=== PATIENT | female | born 1945 | race Caucasian/White ===

== ENCOUNTER 2020-06-13 21:22 | Inpatient (IN) | payer MEDICARE, BC ==
[~2020-06-13] VITALS: Ht 160 cm; Wt 82.6 kg
[2020-06-13 21:10] VITALS: BP 141/62
[2020-06-13] MEDS ORDERED: HEPARIN for IV BOLUS 10,000 UNIT/10 ML VIAL. IV PRN ×2 (21:30)
[2020-06-13] MEDS ORDERED: ACETAMINOPHEN 325 MG TABLET. PO PRN (21:30)
--- NOTE | 2020-06-13 21:49 | NUR ---
Call to Collin Yañez son [phone] in regards to patients medication list. Pt doesn't know what she currently takes. Ria RN aware. awaiting call back.
[2020-06-13 22:21] LABS: BASO # 0.1 x10^3/uL (0.0-0.2); BASO % 0 % (0-3); EOS % 0 % (0-3); HEMOGLOBIN 7.9 g/dL (12.0-15.5); LYMPH # 3.3 x10^3/uL (1.0-4.8); LYMPH % 17 % (24-48); MEAN CORPUSCULAR HEMOGLOBIN 25 pg (25-35); MEAN CORPUSCULAR HGB CONC 31 g/dL (31-37); MEAN CORPUSCULAR VOLUME 80 fL (79-100); MONO # 1.6 x10^3/uL (0.0-1.1); MONO % 8 % (0-9); NEUT # 14.6 x10^3/uL (1.8-7.7); NEUT % 74 % (31-73); PLATELET COUNT 392 x10^3/uL (140-400); RED BLOOD COUNT 3.11 x10^6/uL (3.50-5.40); RED CELL DISTRIBUTION WIDTH 17.8 % (11.5-14.5); WHITE BLOOD COUNT 19.7 x10^3/uL (4.0-11.0)
[2020-06-13 22:25] LABS: UNFRACTIONATED HEPARIN TESTING 0.39 IU/mL (0.30-0.70)
[2020-06-13 22:30] VITALS: BP 140/62
[2020-06-13 22:30] LABS: ALBUMIN 2.8 g/dL (3.4-5.0); ALBUMIN/GLOBULIN RATIO 0.7 (1.0-1.7); CREATININE 0.9 mg/dL (0.6-1.0); GFR 61.5; POTASSIUM 3.7 mmol/L (3.5-5.1); TOTAL BILIRUBIN 0.4 mg/dL (0.2-1.0); TOTAL PROTEIN 6.8 g/dL (6.4-8.2)
[2020-06-13 22:45] LABS: % BANDS 1 % (0-9); % LYMPHS 14 % (24-48); % MONOS 3 % (0-10); % SEGS 82 % (35-66); ANISOCYTOSIS SLIGHT; HYPOCHROMIA MOD; PLT ESTIMATE ADEQUATE (ADEQUATE); POIKILOCYTOSIS SLIGHT; POLYCHROMASIA SLIGHT
[2020-06-13 22:46] LABS: HELMET CELLS OCC; OVALOCYTES OCC; TARGET CELLS OCC; TEAR DROP CELLS OCC
[2020-06-14] VITALS (10 sets, daily range): BP systolic 120–143; BP diastolic 47–62
[2020-06-14] MEDS: ANTI-COAG MONITOR BY PHARMACY. MC PRN ×2 (02:09→12:20)
--- NOTE | 2020-06-14 05:11 | NUR ---
Patient arrived at 2110 via ambulance from [facility]. Patient did not have medication list and no medications listed on [facility] paperwork other then heparin drip. Patient stated, "son had medication list." Son never returned this nurse or mother's phone call.
[2020-06-14 07:28] LABS: BASO # 0.1 x10^3/uL (0.0-0.2); BASO % 1 % (0-3); EOS # 0.2 x10^3/uL (0.0-0.7); EOS % 2 % (0-3); HEMATOCRIT 22.4 % (36.0-47.0); LYMPH # 4.1 x10^3/uL (1.0-4.8); LYMPH % 32 % (24-48); MEAN CORPUSCULAR HEMOGLOBIN 25 pg (25-35); MEAN CORPUSCULAR HGB CONC 31 g/dL (31-37); MEAN CORPUSCULAR VOLUME 81 fL (79-100); MONO % 8 % (0-9); NEUT # 7.6 x10^3/uL (1.8-7.7); NEUT % 58 % (31-73); PLATELET COUNT 354 x10^3/uL (140-400); RED BLOOD COUNT 2.78 x10^6/uL (3.50-5.40); RED CELL DISTRIBUTION WIDTH 17.9 % (11.5-14.5); WHITE BLOOD COUNT 13.1 x10^3/uL (4.0-11.0)
[2020-06-14 07:52] LABS: ALBUMIN 2.5 g/dL (3.4-5.0)
[2020-06-14 07:53] LABS: ALBUMIN/GLOBULIN RATIO 0.7 (1.0-1.7); CALCIUM 8.4 mg/dL (8.5-10.1); CREATININE 0.8 mg/dL (0.6-1.0); GFR 70.5; TOTAL BILIRUBIN 0.4 mg/dL (0.2-1.0)
[2020-06-14] MEDS ORDERED: TIOT18CA IH (07:59)
[2020-06-14] MEDS ORDERED: ATEN50TA PO (07:59)
[2020-06-14] MEDS ORDERED: OMEP20TA8 PO (07:59)
[2020-06-14] MEDS ORDERED: ATOR40TA59 PO (07:59)
[2020-06-14] MEDS ORDERED: LISI-130 PO (07:59)
--- NOTE | 2020-06-14 08:58 | HP ---
ADMIT DATE: 06/14/2020 HISTORY OF PRESENT ILLNESS: The patient is a 74-year-old female patient who was admitted to [facility] to the Emergency Room on 06/12/2020 with a complaint of nonproductive cough for the last 2 weeks, worsening shortness of breath, now exertional shortness of breath for the past 5-6 days. The patient has no history of coronary artery disease, has never had any history of DVT or PE. No recent surgeries or hospitalizations in the last 90 days. She has not been tested for COVID this year. Lives with her family members. The patient that any of them had COVID. She was extensively investigated. She had an EKG, which showed that she was in sinus rhythm with heart rate of 88 beats per minute with no axis deviation, corrected QT interval was 441 milliseconds. T-wave inversion in V2. No ST segment elevation or depression. Her chest x-ray showed normal lung volumes, no pulmonary masses or consolidation and the tracheobronchial tree and hilar structures are normal, no pleural effusion or pneumothorax. The cardiomediastinal silhouette is normal. She does have atherosclerosis of the thoracic aorta. She does have also moderate sized hiatal hernia. Her lab work showed that the patient has microcytic hypochromic anemia. Her white cell count was 14,700, hemoglobin was 7, hematocrit 22, MCV 79 and platelet count of 399,000 with normal manual differential. Her prothrombin time, INR and aPTT were normal. D-dimer was high at 6.16. Her chemistry was unremarkable. Her influenza A and B were negative and group A streptococcus rapid test was negative. Given the elevated D-dimer, she underwent CT angio of the chest and was found to have moderate burden of bilateral pulmonary thromboembolic disease involving segmental and subsegmental branches of all 5 lobes. No right heart strain. Lungs and airways, left upper lobe showed areas of bubbly lucencies with linear opacities and architectural distortion, symmetric right apical opacities. No abnormality of the central airways. She has small right-sided pleural effusion. The visualized thyroid is normal in size and attenuation. No axillary or supraclavicular lymphadenopathy. No mediastinal, hilar or retrosternal lymphadenopathy. Normal cardiac size, no pericardial effusion. Coronary artery atherosclerotic disease. Limited images through the upper abdomen showed no abnormalities of visualized organs. Bones and soft tissues showed age indeterminate T12 compression fracture deformity with 50% vertebral body height loss, degenerative changes of the spine. The patient was admitted with bilateral pulmonary emboli, microcytic hypochromic anemia. Her hemoglobin has dropped further to 6.8; however, the patient denied any hematemesis, melena, or hematochezia. Denied any hematuria, hemoptysis, or epistaxis. She is not on any blood thinners. Denied any history of flying long distances or driving her car for long distances. She is not on any nonsteroidal anti-inflammatory medication. She denied any hormone replacement therapy. Recent surgery, being bedridden and therefore these are unprovoked pulmonary emboli. She does have history of malignant melanoma that was resected in 2003 from her scalp area. She is known to have gastroesophageal reflux disease, and large hiatal hernia, but has never had any endoscopy or colonoscopy. I have discussed the patient's presentation with Dr. Maloney and given that she is not actively bleeding, a decision was made to start her on heparin drip as I was unable to get her bed in the hospital, particularly I was concerned that she might bleed again and she might require IVC filter, eventually had bed available for her here at [facility] and we did consult the customer records division supervisor, the replenisher as well as the interventional radiologist. PAST MEDICAL HISTORY: Significant for hypertension, hyperlipidemia, gastroesophageal reflux disease, and large hiatal hernia. PAST SURGICAL HISTORY: Significant for appendectomy in 1995. She has malignant melanoma resected from her frontal scalp area in 2003. She also has bilateral cataract extraction and arthroscopic surgery of her left knee in 2014. ALLERGIES: She has no known drug allergies. MEDICATIONS: She was transferred to [facility] to continue on all her medications as well as heparin drip. FAMILY HISTORY: She has 2 brothers, both of them are younger, the middle brother has oral cancer and had her baby brother has non-Hodgkin lymphoma. Her mother at the age of 72 because of myocardial infarction. Father at age of 51 because of myocardial infarction. SOCIAL HISTORY: She is , has a son and a daughter from previous marriages. She quit smoking about 3 years ago. She does not drink alcohol or use any recreational drugs. 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 REVIEW OF SYSTEMS: The patient continued to have cough, mostly dry with scanty whitish sputum. No hemoptysis. Again, she continued deny any hemoptysis, hematemesis, melena or hematochezia or hematuria. PHYSICAL EXAMINATION: GENERAL: When I examined her this morning, she was resting slightly propped up in bed, in no apparent respiratory distress. She was pale, but no jaundice, cyanosis or thyromegaly. No jugular venous distention. No limb edema. VITAL SIGNS: Her heart rate was 69, blood pressure was 127/53, temperature was 98.2, respiratory rate was 20, and oxygen saturation was 95% on 3 liters of oxygen. HEAD, EYES, EARS, NOSE AND THROAT: Showed normocephalic, atraumatic. NECK: Supple. HEART: Showed normal first and second heart sounds. No gallop or murmur. CHEST: Clear to auscultation. No crepitation or rhonchi. ABDOMEN: Slightly distended, soft, nontender. NEUROLOGIC: She is awake, alert, responding appropriately. All her cranial nerves are intact. EXTREMITIES: She moves extremities without difficulty. LABORATORY DATA: Her lab work on arrival last night showed a white cell count of 19,700, hemoglobin 7.9, hematocrit 25, MCV 80 and platelet count of 392,000. Her H and H have drifted down again this morning and this morning, her white cell count was 13,100, hemoglobin 7, hematocrit 22.4, MCV 81 and platelet count 354,000. Her chemistry this morning showed a serum sodium 143, potassium 4, chloride 108, bicarbonate 25, anion gap of 10, BUN 23, creatinine 0.8, estimated GFR was 70 mL per minute. She has a glucose of 98, calcium was 8.4. Total bilirubin, AST, ALT, alkaline phosphatase were normal. Total protein was 6, albumin was 2.5. The patient's prothrombin time, INR and aPTT are normal. She continues to be on heparin drip. PLAN: My plan is obviously to consult the customer records division supervisor and the replenisher as well as the interventional radiologist. We will type and cross and transfuse her 1 unit of packed RBCs. We will continue to monitor her H and H. MARYAM CHA MD DR: SY/drake JOB#: [id number] / [id number]
[2020-06-14] MEDS: ATENOLOL 50 MG TABLET. PO SCH (09:00)
[2020-06-14] MEDS: LISINOPRIL 20 MG TABLET PO SCH (09:00)
--- NOTE | 2020-06-14 09:49 | PDOC2 ---
GI CONSULT Date of Service: DATE: 06/14/20 TIME: 09:48 Reason For Consult: anemia HPI: HPI: 74 y/o female transferred from [facility] where she was evaluated for SOA. Imaging there noted nonocclusive LLE DVT, bilateral pulmonary thromboembolic disease, asymmetric right apical opacities, moderate hiatal hernia, coronary artery artherosclerotic disease, small right pleural effusion. Also anemic which is why we are asked to see. She denies obvious GI bleeding including hematemesis, hematochezia and melena. Reports h/o anemia dating back to teenage years and during pregnancies. Recalled that she was told to take iron. Says has routine labs w/ PCP - no mention of anemia then. H/o GERD on omeprazole QD. No dysphagia, n/v, abd pain, early satiety, weight loss, diarrhea, or constipation. Maybe decreased appetite - "it's hard to eat when you can't breathe." No previous EGD or colonoscopy - does not want to have either. No GB, liver, pancreas, or PUD history. [id number] QD. D/w nurse - dark brown stool this morning, on Heparin, to receive another transfusion. PMH: PMH: HTN, COPD, HLD, skin cancer, GERD, anemia appendectomy, left knee surgery FH: Family History: Cancer (brothers - NHL, leukemia), CAD (mother) Social History: Smoke: <1 pack per day ALCOHOL: none Drugs: None ROS: GEN: Denies fevers, chills, sweats HEENT: Denies blurred vision, sore throat CV: Denies chest pain RESP: +SOA GI: Per HPI : Denies hematuria, dysuria ENDO: Denies weight changes NEURO: Denies confusion, dizziness MSK: Denies weakness, joint pain/swelling SKIN: Denies jaundice, pruritus Vitals: Vitals: Vital Signs Date Time Temp Pulse Resp B/P (MAP) Pulse Ox O2 Delivery O2 Flow Rate FiO2 06/14/20 07:00 98.2 69 20 127/53 (77) 95 Nasal Cannula 3.0 98.2 Labs: Labs: Laboratory Tests Test 06/13/20 21:16 06/14/20 06:43 White Blood Count 19.7 x10^3/uL (4.0-11.0) 13.1 x10^3/uL (4.0-11.0) Red Blood Count 3.11 x10^6/uL (3.50-5.40) 2.78 x10^6/uL (3.50-5.40) Hemoglobin 7.9 g/dL (12.0-15.5) 7.0 g/dL (12.0-15.5) Hematocrit 25.0 % (36.0-47.0) 22.4 % (36.0-47.0) Mean Corpuscular Volume 80 fL (79-100) 81 fL (79-100) Mean Corpuscular Hemoglobin 25 pg (25-35) 25 pg (25-35) Mean Corpuscular Hemoglobin Concent 31 g/dL (31-37) 31 g/dL (31-37) Red Cell Distribution Width 17.8 % (11.5-14.5) 17.9 % (11.5-14.5) Platelet Count 392 x10^3/uL (140-400) 354 x10^3/uL (140-400) Neutrophils (%) (Auto) 74 % (31-73) 58 % (31-73) Lymphocytes (%) (Auto) 17 % (24-48) 32 % (24-48) Monocytes (%) (Auto) 8 % (0-9) 8 % (0-9) Eosinophils (%) (Auto) 0 % (0-3) 2 % (0-3) Basophils (%) (Auto) 0 % (0-3) 1 % (0-3) Neutrophils # (Auto) 14.6 x10^3/uL (1.8-7.7) 7.6 x10^3/uL (1.8-7.7) Lymphocytes # (Auto) 3.3 x10^3/uL (1.0-4.8) 4.1 x10^3/uL (1.0-4.8) Monocytes # (Auto) 1.6 x10^3/uL (0.0-1.1) 1.0 x10^3/uL (0.0-1.1) Eosinophils # (Auto) 0.0 x10^3/uL (0.0-0.7) 0.2 x10^3/uL (0.0-0.7) Basophils # (Auto) 0.1 x10^3/uL (0.0-0.2) 0.1 x10^3/uL (0.0-0.2) Segmented Neutrophils % 82 % (35-66) Band Neutrophils % 1 % (0-9) Lymphocytes % 14 % (24-48) Monocytes % 3 % (0-10) Platelet Estimate Adequate (ADEQUATE) Polychromasia Slight Hypochromasia Mod Poikilocytosis Slight Anisocytosis Slight Target Cells Occ Tear Drop Cells Occ Ovalocytes Occ Helmet Cells Occ Prothrombin Time 14.0 SEC (11.7-14.0) Prothromb Time International Ratio 1.1 (0.8-1.1) Heparin Anti-Xa Act, Unfractionated 0.39 IU/mL (0.30-0.70) 0.43 IU/mL (0.30-0.70) Sodium Level 139 mmol/L (136-145) 143 mmol/L (136-145) Potassium Level 3.7 mmol/L (3.5-5.1) 4.0 mmol/L (3.5-5.1) Chloride Level 105 mmol/L (98-107) 108 mmol/L (98-107) Carbon Dioxide Level 26 mmol/L (21-32) 25 mmol/L (21-32) Anion Gap 8 (6-14) 10 (6-14) Blood Urea Nitrogen 27 mg/dL (7-20) 23 mg/dL (7-20) Creatinine 0.9 mg/dL (0.6-1.0) 0.8 mg/dL (0.6-1.0) Estimated GFR (Cockcroft-Gault) 61.5 70.5 BUN/Creatinine Ratio 30 (6-20) 29 (6-20) Glucose Level 123 mg/dL (70-99) 98 mg/dL (70-99) Calcium Level 9.0 mg/dL (8.5-10.1) 8.4 mg/dL (8.5-10.1) Total Bilirubin 0.4 mg/dL (0.2-1.0) 0.4 mg/dL (0.2-1.0) Aspartate Amino Transf (AST/SGOT) 38 U/L (15-37) 27 U/L (15-37) Alanine Aminotransferase (ALT/SGPT) 32 U/L (14-59) 29 U/L (14-59) Alkaline Phosphatase 98 U/L (46-116) 85 U/L (46-116) Total Protein 6.8 g/dL (6.4-8.2) 6.0 g/dL (6.4-8.2) Albumin 2.8 g/dL (3.4-5.0) 2.5 g/dL (3.4-5.0) Albumin/Globulin Ratio 0.7 (1.0-1.7) 0.7 (1.0-1.7) Allergies: Coded Allergies: No Known Drug Allergies (Unverified , 06/13/20) Medications: Current Medications Medications (Trade) Dose Ordered Sig/Marion Route PRN Reason Start Time Stop Time Status Last Admin Dose Admin Info (Anti-Coagulation Monitoring By Pharmacy) 1 each PRN DAILY PRN MC SEE COMMENTS 06/13/20 22:00 06/14/20 02:09 Imaging: Imaging: per HPI PE: GEN: NAD - was talking on phone w/ child HEENT: Atraumatic, PERRL LUNGS: dry cough, diminished anteriorly, NC 3L HEART: RRR ABD: NABS, S/ND/NT EXTREMITY: No edema SKIN: No rashes, no jaundice NEURO/PSYCH: A & O 3 A/P: A/P: Bilateral PEs, LLE DVT Anemia GERD, moderate hiatal hernia - on PPI, no previous EGD CRC screen - none Rapid COVID negative @ [facility] -- She does not wish to pursue EGD or colonoscopy. Observe, transfuse as needed, continue PPI, consider iron. ESEQUIEL ISABEL Jun 14, 2020 09:49
--- NOTE | 2020-06-14 11:01 | CONS ---
DATE OF CONSULTATION: PULMONARY CONSULTATION ATTENDING PHYSICIAN: Araceli Watkins MD. REASON FOR CONSULTATION: Respiratory failure, pulmonary embolism. HISTORY OF PRESENT ILLNESS: The patient is a 74-year-old female who has been a smoker for 40 years and has not completely quit cigarettes. She was brought into the hospital with complaint of progressive shortness of breath. The symptoms began around the Thanksgiving time. The patient states she had a back surgery around that time and was relatively immobile for 6-8 weeks. The patient states that her shortness of breath got worse to a point where she was seen in the Emergency Room. She denies any chest pain, no syncopal episode. She had an elevated D-dimer at [facility] and as a result, she underwent CTA chest. I have reviewed CTA chest. The patient has evidence of segmental and subsegmental pulmonary emboli in both lungs. There is sparing of the main pulmonary trunk. There is a cystic density in the left upper lobe along with some rounded solid density in the left upper lobe as well. As a result, the patient is being transferred to our facility for further care. The patient's venous Dopplers showed nonocclusive DVT involving the left popliteal and posterior tibial veins. She is not on any hormone medicine. She has history of melanoma, which was resected from her scalp in 2003, no recurrence. PAST MEDICAL HISTORY: Significant for hypertension, hyperlipidemia, gastroesophageal reflux disease, and large hiatal hernia. PAST SURGICAL HISTORY: Appendectomy, malignant melanoma resection from the frontal scalp in 2003. History of bilateral cataract extraction and arthroscopic surgery of the left knee and back surgery. ALLERGIES: None. MEDICATIONS: Reviewed as listed in the MRAD. REVIEW OF SYSTEMS: Twelve-point system obtained. Pertinent positives discussed in my history of present illness, otherwise noncontributory. All systems that were negative were reviewed as well. FAMILY HISTORY: The patient's one brother had oral cancer and one baby brother has non-Hodgkin's lymphoma. No family history of thromboembolic disease. SOCIAL HISTORY: Smoker for 40 years. Still smoking cigarettes. PHYSICAL EXAMINATION: VITAL SIGNS: Reviewed. Blood pressure stable, pulse ox 96% on 3 liters, afebrile. NECK: Supple. LUNGS: Clear. CARDIOVASCULAR: With a regular rate. ABDOMEN: Soft. EXTREMITIES: With no pitting edema. LABORATORY DATA: Reviewed. Hemoglobin 7.0, white cell count 13.1, and platelets are 354. Hemoglobin was 7.9 on admission. Her chemistries showed BUN of 23, creatinine of 0.8. Albumin 2.5. INR 1.1. IMPRESSION: 1. Acute hypoxic respiratory failure secondary to bilateral acute pulmonary embolism and deep venous thrombosis involving the left lower extremity. Risk factor being immobile around Thanksgiving time related to back injury. She was immobile for 6-8 weeks. There is no active cancer. The melanoma was resected from her scalp in 2003 and has no recurrence per the patient's history. The patient has 40 years of tobacco use and there is abnormal cystic like density in the left upper lobe and needs to be closely followed up for any lung malignancy. 2. Anemia without any obvious gastrointestinal bleed. Needs to closely follow up. If hemoglobin continues to fall, then she may need inferior vena cava filter. 3. Long history of tobacco use for 40 years, suspect underlying chronic obstructive pulmonary disease. RECOMMENDATIONS: 1. Continue with present heparin per protocol. 2. Closely follow hemoglobin. 3. If hemoglobin drops again, then we may consider doing IVC filter. 4. We will need a CT chest followup in 6-8 weeks to make sure pulmonary emboli resolved and also the left upper lobe cystic lesion appears to have improved along with some solid density in the left upper lobe improved as well. 5. Obtain venous Dopplers in 6-8 weeks to make sure there is resolution of thromboembolic disease. 6. Discussed with RN and we will follow along with you. We will hold off on transition to Eliquis until we see stability of hemoglobin. LYNNE PATRICK MD DR: LUKAS/draek JOB#: [id number] / [id number]
--- NOTE | 2020-06-14 11:59 | NUR ---
SS following for discharge planning. SS reviewed pt chart and discussed with pt RN. Pt is from home alone and is currently requiring oxygen. Pt has bilateral PE's. Pt on Heparin drip. Blood today. SS will continue to follow for discharge planning.
[2020-06-14 12:03] LABS: FECAL OB PT NEGATIVE (NEG)
[2020-06-14] MEDS: PANTOPRAZOLE 40 MG TABLET.DR. PO SCH (17:30)
[2020-06-14] MEDS: ATORVASTATIN CALCIUM 40 MG TABLET. PO SCH (20:15)
[2020-06-14] MEDS: HEPARIN 25,000UTS/250ML PREMIX 250 ML IV PRN (20:17)
[2020-06-15 01:11] LABS: THYROXINE 7.8 ug/dL (4.5-12.0)
[2020-06-15 02:03] VITALS: BP 143/62
[2020-06-15 07:00] VITALS: BP 143/65
[2020-06-15 08:27] LABS: HEMATOCRIT 25.9 % (36.0-47.0); HEMOGLOBIN 8.4 g/dL (12.0-15.5); RED BLOOD COUNT 3.17 x10^6/uL (3.50-5.40); RED CELL DISTRIBUTION WIDTH 17.6 % (11.5-14.5); WHITE BLOOD COUNT 10.4 x10^3/uL (4.0-11.0)
[2020-06-15] MEDS: PANTOPRAZOLE 40 MG TABLET.DR. PO SCH (08:32)
[2020-06-15] MEDS: ATENOLOL 50 MG TABLET. PO SCH (08:32)
[2020-06-15] MEDS: LISINOPRIL 20 MG TABLET PO SCH (08:33)
--- NOTE | 2020-06-15 08:36 | PDOC ---
PULMONARY PROGRESS NOTES DATE: 06/15/20 TIME: 08:31 Subjective Sitting EOB on 3 liters Denies SOA or Cough no reported bleeding or bruising S/P PRBC 1 unit 06/14/20 Vitals Vital Signs Date Time Temp Pulse Resp B/P (MAP) Pulse Ox O2 Delivery O2 Flow Rate FiO2 06/15/20 07:00 98.0 79 20 143/65 (91) 94 Nasal Cannula 3.0 98.0 ROS: No Nausea, No Chest Pain, No Abdominal Pain, No Increase Cough General: Alert, Oriented X4 Lungs: Clear Cardiovascular: S1, S2 Abdomen: Soft, Non-tender Neuro Exam: Alert Extremities: No Edema Skin: Warm, Dry Labs Laboratory Tests Test 06/13/20 21:16 06/14/20 06:43 06/14/20 08:25 White Blood Count 19.7 x10^3/uL (4.0-11.0) 13.1 x10^3/uL (4.0-11.0) Red Blood Count 3.11 x10^6/uL (3.50-5.40) 2.78 x10^6/uL (3.50-5.40) Hemoglobin 7.9 g/dL (12.0-15.5) 7.0 g/dL (12.0-15.5) Hematocrit 25.0 % (36.0-47.0) 22.4 % (36.0-47.0) Mean Corpuscular Volume 80 fL (79-100) 81 fL (79-100) Mean Corpuscular Hemoglobin 25 pg (25-35) 25 pg (25-35) Mean Corpuscular Hemoglobin Concent 31 g/dL (31-37) 31 g/dL (31-37) Red Cell Distribution Width 17.8 % (11.5-14.5) 17.9 % (11.5-14.5) Platelet Count 392 x10^3/uL (140-400) 354 x10^3/uL (140-400) Neutrophils (%) (Auto) 74 % (31-73) 58 % (31-73) Lymphocytes (%) (Auto) 17 % (24-48) 32 % (24-48) Monocytes (%) (Auto) 8 % (0-9) 8 % (0-9) Eosinophils (%) (Auto) 0 % (0-3) 2 % (0-3) Basophils (%) (Auto) 0 % (0-3) 1 % (0-3) Neutrophils # (Auto) 14.6 x10^3/uL (1.8-7.7) 7.6 x10^3/uL (1.8-7.7) Lymphocytes # (Auto) 3.3 x10^3/uL (1.0-4.8) 4.1 x10^3/uL (1.0-4.8) Monocytes # (Auto) 1.6 x10^3/uL (0.0-1.1) 1.0 x10^3/uL (0.0-1.1) Eosinophils # (Auto) 0.0 x10^3/uL (0.0-0.7) 0.2 x10^3/uL (0.0-0.7) Basophils # (Auto) 0.1 x10^3/uL (0.0-0.2) 0.1 x10^3/uL (0.0-0.2) Segmented Neutrophils % 82 % (35-66) Band Neutrophils % 1 % (0-9) Lymphocytes % 14 % (24-48) Monocytes % 3 % (0-10) Platelet Estimate Adequate (ADEQUATE) Polychromasia Slight Hypochromasia Mod Poikilocytosis Slight Anisocytosis Slight Target Cells Occ Tear Drop Cells Occ Ovalocytes Occ Helmet Cells Occ Prothrombin Time 14.0 SEC (11.7-14.0) Prothromb Time International Ratio 1.1 (0.8-1.1) Heparin Anti-Xa Act, Unfractionated 0.39 IU/mL (0.30-0.70) 0.43 IU/mL (0.30-0.70) Sodium Level 139 mmol/L (136-145) 143 mmol/L (136-145) Potassium Level 3.7 mmol/L (3.5-5.1) 4.0 mmol/L (3.5-5.1) Chloride Level 105 mmol/L (98-107) 108 mmol/L (98-107) Carbon Dioxide Level 26 mmol/L (21-32) 25 mmol/L (21-32) Anion Gap 8 (6-14) 10 (6-14) Blood Urea Nitrogen 27 mg/dL (7-20) 23 mg/dL (7-20) Creatinine 0.9 mg/dL (0.6-1.0) 0.8 mg/dL (0.6-1.0) Estimated GFR (Cockcroft-Gault) 61.5 70.5 BUN/Creatinine Ratio 30 (6-20) 29 (6-20) Glucose Level 123 mg/dL (70-99) 98 mg/dL (70-99) Calcium Level 9.0 mg/dL (8.5-10.1) 8.4 mg/dL (8.5-10.1) Total Bilirubin 0.4 mg/dL (0.2-1.0) 0.4 mg/dL (0.2-1.0) Aspartate Amino Transf (AST/SGOT) 38 U/L (15-37) 27 U/L (15-37) Alanine Aminotransferase (ALT/SGPT) 32 U/L (14-59) 29 U/L (14-59) Alkaline Phosphatase 98 U/L (46-116) 85 U/L (46-116) Total Protein 6.8 g/dL (6.4-8.2) 6.0 g/dL (6.4-8.2) Albumin 2.8 g/dL (3.4-5.0) 2.5 g/dL (3.4-5.0) Albumin/Globulin Ratio 0.7 (1.0-1.7) 0.7 (1.0-1.7) Thyroid Stimulating Hormone (TSH) 3.254 uIU/mL (0.358-3.74) Thyroxine (T4) 7.8 ug/dL (4.5-12.0) Stool Occult Blood Negative (NEG) Medications Active Scripts Medications Dose Route/Sig Max Daily Dose Days Date Category Atorvastatin Calcium 40 Mg Tablet 1 Tab PO QHS 06/14/20 Reported Omeprazole 20 Mg Tablet.dr 20 Mg PO DAILY 06/14/20 Reported Atenolol 50 Mg Tablet 1 Tab PO DAILY 06/14/20 Reported Lisinopril 40 Mg Tablet 1 Tab PO DAILY 06/14/20 Reported Spiriva (Tiotropium [place]) 18 Mcg Cap.w.dev 1 Cap IH DAILY 06/14/20 Reported Impression . IMPRESSION: 1. Acute hypoxic respiratory failure secondary to bilateral acute pulmonary embolism and deep venous thrombosis involving the left lower extremity. Risk factor being immobile around Thanksgiving time related to back injury. She was immobile for 6-8 weeks. There is no active cancer. The melanoma was resected from her scalp in 2003 and has no recurrence per the patient's history. The patient has 40 years of tobacco use and there is abnormal cystic like density in the left upper lobe and needs to be closely followed up for any lung malignancy. 2. Anemia without any obvious gastrointestinal bleed. Needs to closely follow up. If hemoglobin continues to fall, then she may need inferior vena cava filter. 3. Long history of tobacco use for 40 years, suspect underlying chronic obstructive pulmonary disease. Plan . RECOMMENDATIONS: Continue Supplemental oxygen, currently on 3 liters N/C Monitor HGB, S/P PRBC 1 unit 06/14/20 Continue heparin gtt for PE/DVT Consider doing IVC filter if ongoing anemia , hold for now consult Hem/Onc for anemia without outward sign of bleeding Follow GI recs Follow up CT chest followup in 6-8 weeks to make sure pulmonary emboli resolved and also the left upper lobe cystic lesion appears to have improved along with some solid density in the left upper lobe improved as well. Obtain venous Dopplers in 6-8 weeks to make sure there is resolution of thromboembolic disease. PT/OT D/W LYNNE NAIDU MD Jun 15, 2020 08:36
[2020-06-15 09:03] LABS: ALBUMIN 2.6 g/dL (3.4-5.0); ALBUMIN/GLOBULIN RATIO 0.8 (1.0-1.7); CALCIUM 8.7 mg/dL (8.5-10.1); CREATININE 0.7 mg/dL (0.6-1.0); GFR 82.3; TOTAL BILIRUBIN 0.7 mg/dL (0.2-1.0); TOTAL PROTEIN 5.8 g/dL (6.4-8.2)
--- NOTE | 2020-06-15 09:10 | PN ---
DATE: 06/15/2020 SUBJECTIVE: The patient is resting, slightly propped up in bed, in no apparent respiratory distress. She is awake, alert, continued to complain of cough that is mostly dry. She apparently was seen by the junior technical writer and apparently refused any intervention, namely endoscopy or colonoscopy, but she is apparently scheduled for IVC filter placement, sometimes a day. PHYSICAL EXAMINATION: GENERAL: When I examined her, she was pale, no jaundice, cyanosis or thyromegaly. No jugular venous distention or limb edema. VITAL SIGNS: Her heart rate was 79, blood pressure was 143/65, temperature was 98, respiratory rate 20, and oxygen saturation was 94% on 3 liters of oxygen. HEENT: Showed normocephalic, atraumatic. NECK: Supple. HEART: Normal first and second heart sounds. No gallop, rub or murmur. CHEST: Clear to auscultation. No crepitation or rhonchi. ABDOMEN: Soft, nontender. NEUROLOGIC: She is grossly intact. Her intake and output were incompletely recorded. She apparently dropped her hemoglobin and hematocrit yesterday to 7 and 22 and she did receive 1 unit of packed RBCs. Her stool for occult blood was negative. ASSESSMENT: 1. Acute hypoxic respiratory failure. 2. Bilateral pulmonary emboli and left lower extremity deep vein thrombosis. 3. Anemia for which she has so far received 2 units of packed RBCs, although her stool for occult blood was negative. 4. Probably chronic obstructive pulmonary disease as she has been a smoker for more than 40 years and she continues to smoke. PLAN: To continue to monitor her H and H and transfuse as needed. MARYAM CHA MD DR: SY/drake JOB#: [id number] / [id number]
--- NOTE | 2020-06-15 10:18 | PDOC ---
Date of Service: DATE: 06/15/20 TIME: 10:14 Subjective: Subjective: No bleeding, tolerating diet. Objective: Objective: D/w nurse - no GI concerns, to see heme/onc. Vital Signs: Vital Signs Date Time Temp Pulse Resp B/P (MAP) Pulse Ox O2 Delivery O2 Flow Rate FiO2 06/15/20 08:33 79 143/65 06/15/20 07:00 98.0 20 94 Nasal Cannula 3.0 98.0 Labs: Laboratory Tests Test 06/15/20 05:57 White Blood Count 10.4 x10^3/uL Red Blood Count 3.17 x10^6/uL Hemoglobin 8.4 g/dL Hematocrit 25.9 % Mean Corpuscular Volume 82 fL Mean Corpuscular Hemoglobin 26 pg Mean Corpuscular Hemoglobin Concent 32 g/dL Red Cell Distribution Width 17.6 % Platelet Count 342 x10^3/uL Heparin Anti-Xa Act, Unfractionated 0.25 IU/mL Sodium Level 140 mmol/L Potassium Level 4.0 mmol/L Chloride Level 106 mmol/L Carbon Dioxide Level 26 mmol/L Anion Gap 8 Blood Urea Nitrogen 18 mg/dL Creatinine 0.7 mg/dL Estimated GFR (Cockcroft-Gault) 82.3 BUN/Creatinine Ratio 26 Glucose Level 87 mg/dL Calcium Level 8.7 mg/dL Total Bilirubin 0.7 mg/dL Aspartate Amino Transf (AST/SGOT) 26 U/L Alanine Aminotransferase (ALT/SGPT) 32 U/L Alkaline Phosphatase 89 U/L Total Protein 5.8 g/dL Albumin 2.6 g/dL Albumin/Globulin Ratio 0.8 PE: GEN: NAD LUNGS: diminished, NC HEART: RRR ABD: NABS, S/ND/NT NEURO/PSYCH: A & O 3 A/P: Bilateral PEs, LLE DVT Anemia - no previous scopes, pt not interested in pursuing - improved w/ transfusions GERD, moderate hiatal hernia Rapid COVID negative @ [facility] -- TSH normal, celiac serology pending. Will follow. Justicifation of Admission Dx: Justifications for Admission: Justification of Admission Dx: Yes ESEQUIEL ISABEL Jun 15, 2020 10:18
[2020-06-15 10:50] VITALS: BP 140/63
--- NOTE | 2020-06-15 12:29 | NUR ---
SS following up with discharge planning. SS reviewed pt chart and discussed with pt RN. Pt is currently requiring oxygen. Heparin Drip. Pt needing IVC filter. SS will continue to follow for discharge planning.
[2020-06-15 12:49] LABS: LACTATE DEHYDROGENASE 189 U/L (81-234)
--- NOTE | 2020-06-15 14:43 | PDOC2 ---
CONSULT Date of Consult Date of Consult DATE: 06/15/20 TIME: 14:32 Reason for Consult Reason for Consult: Anemia Referring Physician Referring Physician: Dr. Martel Identification/Chief Complaint Chief Complaint Shortness of breath Source Source: Caregiver, Chart review, Patient History of Present Illness Reason for Visit: Collin Cardoza is a 74-year-old female with history of hypertension and anemia who presented to the hospital with worsening shortness of breath. She states worsening exertional dyspnea for the past 6 weeks. She reports having had back surgery 6 weeks ago. She presented to the emergency room at [facility] and received a CTA chest which showed bilateral pulmonary emboli. She has also received ultrasound Doppler which showed nonocclusive DVT in the left popliteal and posterior tibial vein. Her lab studies have shown anemia. She is currently on heparin infusion and IVC filter placement is being considered. Hematology consultation has been sought due to anemia. Patient denies hematemesis or melena or hematochezia She denies use of NSAIDs She denies a history of GI bleeding Reports never having had a colonoscopy or endoscopy Denies a family history of blood disorders Social History <1 pack per day ALCOHOL: none Drugs: None Current Medications Current Medications Current Medications Acetaminophen (Tylenol) 650 mg PRN Q6HRS PRN PO TEMP OVER 100.4F OR MILD PAIN; Start 06/13/20 at 21:30 Heparin Sodium/ Dextrose 250 ml @ 0 mls/hr CONT PRN IV PER PROTOCOL Last administered on 06/14/20at 20:17; Start 06/13/20 at 21:30 Heparin Sodium (Porcine) (Heparin Sodium) 2,450 unit PRN Q6HRS PRN IV FOR UFH LEVEL LESS THAN 0.2; Start 06/13/20 at 21:30 Heparin Sodium (Porcine) (Heparin Sodium) 1,250 unit PRN Q6HRS PRN IV FOR UFH LEVEL 0.2 - 0.29; Start 06/13/20 at 21:30 Info (Anti-Coagulation Monitoring By Pharmacy) 1 each PRN DAILY PRN MC SEE COMMENTS Last administered on 06/14/20at 12:20; Start 06/13/20 at 22:00 Atorvastatin Calcium (Lipitor) 40 mg QHS PO Last administered on 06/14/20at 20:15; Start 06/14/20 at 21:00 Atenolol (Tenormin) 50 mg DAILY PO Last administered on 06/15/20at 08:32; Start 06/14/20 at 09:00 Lisinopril (Prinivil) 40 mg DAILY PO Last administered on 06/15/20at 08:33; Start 06/14/20 at 09:00 Pantoprazole Sodium (Protonix) 40 mg DAILYAC PO Last administered on 06/15/20at 08:32; Start 06/14/20 at 11:30 Active Scripts Active Reported Atorvastatin Calcium 40 Mg Tablet 1 Tab PO QHS Omeprazole 20 Mg Tablet.dr 20 Mg PO DAILY Atenolol 50 Mg Tablet 1 Tab PO DAILY Lisinopril 40 Mg Tablet 1 Tab PO DAILY Spiriva (Tiotropium [place]) 18 Mcg Cap.w.dev 1 Cap IH DAILY Allergies Allergies: Coded Allergies: No Known Drug Allergies (Unverified , 06/13/20) ROS General: YES: Fatigue, Malaise PSYCHOLOGICAL ROS: No: Hallucinations, Hostility Eyes: No Eye Pain, No Itchy Eyes HEENT: No: Oral lesions, Sinus pain ALLERGY AND IMMUNOLOGY: No: Nasal Congestion, Post Nasal Drip ENDOCRINE: YES: Malaise/lethargy Respiratory: YES: Cough, Shortness of breath Gastrointestinal: No Nausea, No Vomiting, No Melena, No Hematochezia Genitourinary: No Dysuria, No Flank Pain Musculoskeletal: No Gait Disturbance, No Joint Pain Neurological: No Behavorial Changes, No Bowel/Bladder ControlChng Skin: No Dry Skin, No Eczema Physical Exam General: Alert, Oriented X3 HEENT: Atraumatic Lungs: Clear to auscultation Heart: Regular rate Abdomen: Normal bowel sounds, Soft Extremities: No clubbing Skin: No breakdown Neuro: Normal gait, Normal speech MUSCULOSKELETAL: No swelling Vitals VITALS Vital Signs Date Time Temp Pulse Resp B/P (MAP) Pulse Ox O2 Delivery O2 Flow Rate FiO2 06/15/20 10:50 97.3 60 22 140/63 (88) 98 Nasal Cannula 3.0 97.3 Labs Labs Laboratory Tests Test 06/13/20 21:16 06/14/20 06:43 06/14/20 08:25 06/15/20 05:57 White Blood Count 19.7 x10^3/uL (4.0-11.0) 13.1 x10^3/uL (4.0-11.0) 10.4 x10^3/uL (4.0-11.0) Red Blood Count 3.11 x10^6/uL (3.50-5.40) 2.78 x10^6/uL (3.50-5.40) 3.21 x10^6/uL (3.50-5.70) Hemoglobin 7.9 g/dL (12.0-15.5) 7.0 g/dL (12.0-15.5) 8.4 g/dL (12.0-15.5) Hematocrit 25.0 % (36.0-47.0) 22.4 % (36.0-47.0) 25.9 % (36.0-47.0) Mean Corpuscular Volume 80 fL (79-100) 81 fL (79-100) 82 fL (79-100) Mean Corpuscular Hemoglobin 25 pg (25-35) 25 pg (25-35) 26 pg (25-35) Mean Corpuscular Hemoglobin Concent 31 g/dL (31-37) 31 g/dL (31-37) 32 g/dL (31-37) Red Cell Distribution Width 17.8 % (11.5-14.5) 17.9 % (11.5-14.5) 17.6 % (11.5-14.5) Platelet Count 392 x10^3/uL (140-400) 354 x10^3/uL (140-400) 342 x10^3/uL (140-400) Neutrophils (%) (Auto) 74 % (31-73) 58 % (31-73) Lymphocytes (%) (Auto) 17 % (24-48) 32 % (24-48) Monocytes (%) (Auto) 8 % (0-9) 8 % (0-9) Eosinophils (%) (Auto) 0 % (0-3) 2 % (0-3) Basophils (%) (Auto) 0 % (0-3) 1 % (0-3) Neutrophils # (Auto) 14.6 x10^3/uL (1.8-7.7) 7.6 x10^3/uL (1.8-7.7) Lymphocytes # (Auto) 3.3 x10^3/uL (1.0-4.8) 4.1 x10^3/uL (1.0-4.8) Monocytes # (Auto) 1.6 x10^3/uL (0.0-1.1) 1.0 x10^3/uL (0.0-1.1) Eosinophils # (Auto) 0.0 x10^3/uL (0.0-0.7) 0.2 x10^3/uL (0.0-0.7) Basophils # (Auto) 0.1 x10^3/uL (0.0-0.2) 0.1 x10^3/uL (0.0-0.2) Segmented Neutrophils % 82 % (35-66) Band Neutrophils % 1 % (0-9) Lymphocytes % 14 % (24-48) Monocytes % 3 % (0-10) Platelet Estimate Adequate (ADEQUATE) Polychromasia Slight Hypochromasia Mod Poikilocytosis Slight Anisocytosis Slight Target Cells Occ Tear Drop Cells Occ Ovalocytes Occ Helmet Cells Occ Prothrombin Time 14.0 SEC (11.7-14.0) Prothromb Time International Ratio 1.1 (0.8-1.1) Heparin Anti-Xa Act, Unfractionated 0.39 IU/mL (0.30-0.70) 0.43 IU/mL (0.30-0.70) 0.25 IU/mL (0.30-0.70) Sodium Level 139 mmol/L (136-145) 143 mmol/L (136-145) 140 mmol/L (136-145) Potassium Level 3.7 mmol/L (3.5-5.1) 4.0 mmol/L (3.5-5.1) 4.0 mmol/L (3.5-5.1) Chloride Level 105 mmol/L (98-107) 108 mmol/L (98-107) 106 mmol/L (98-107) Carbon Dioxide Level 26 mmol/L (21-32) 25 mmol/L (21-32) 26 mmol/L (21-32) Anion Gap 8 (6-14) 10 (6-14) 8 (6-14) Blood Urea Nitrogen 27 mg/dL (7-20) 23 mg/dL (7-20) 18 mg/dL (7-20) Creatinine 0.9 mg/dL (0.6-1.0) 0.8 mg/dL (0.6-1.0) 0.7 mg/dL (0.6-1.0) Estimated GFR (Cockcroft-Gault) 61.5 70.5 82.3 BUN/Creatinine Ratio 30 (6-20) 29 (6-20) 26 (6-20) Glucose Level 123 mg/dL (70-99) 98 mg/dL (70-99) 87 mg/dL (70-99) Calcium Level 9.0 mg/dL (8.5-10.1) 8.4 mg/dL (8.5-10.1) 8.7 mg/dL (8.5-10.1) Total Bilirubin 0.4 mg/dL (0.2-1.0) 0.4 mg/dL (0.2-1.0) 0.7 mg/dL (0.2-1.0) Aspartate Amino Transf (AST/SGOT) 38 U/L (15-37) 27 U/L (15-37) 26 U/L (15-37) Alanine Aminotransferase (ALT/SGPT) 32 U/L (14-59) 29 U/L (14-59) 32 U/L (14-59) Alkaline Phosphatase 98 U/L (46-116) 85 U/L (46-116) 89 U/L (46-116) Total Protein 6.8 g/dL (6.4-8.2) 6.0 g/dL (6.4-8.2) 5.8 g/dL (6.4-8.2) Albumin 2.8 g/dL (3.4-5.0) 2.5 g/dL (3.4-5.0) 2.6 g/dL (3.4-5.0) Albumin/Globulin Ratio 0.7 (1.0-1.7) 0.7 (1.0-1.7) 0.8 (1.0-1.7) Thyroid Stimulating Hormone (TSH) 3.254 uIU/mL (0.358-3.74) Thyroxine (T4) 7.8 ug/dL (4.5-12.0) Stool Occult Blood Negative (NEG) Absolute Reticulocyte Count 0.071 x10^6/uL (0.020-0.120) Percent Reticulocyte Count 2.2 % (0.5-2.3) Immature Reticulocyte Fraction 0.61 (0.20-0.60) Iron Level 27 ug/dL (50-170) Total Iron Binding Capacity 348 ug/dL (250-450) Iron Saturation 8 % (15-34) Ferritin 30 ng/mL (8-252) Lactate Dehydrogenase 189 U/L (81-234) Vitamin B12 Level 180 pg/mL (247-911) Laboratory Tests Test 06/15/20 05:57 White Blood Count 10.4 x10^3/uL (4.0-11.0) Red Blood Count 3.21 x10^6/uL (3.50-5.70) Hemoglobin 8.4 g/dL (12.0-15.5) Hematocrit 25.9 % (36.0-47.0) Mean Corpuscular Volume 82 fL (79-100) Mean Corpuscular Hemoglobin 26 pg (25-35) Mean Corpuscular Hemoglobin Concent 32 g/dL (31-37) Red Cell Distribution Width 17.6 % (11.5-14.5) Platelet Count 342 x10^3/uL (140-400) Absolute Reticulocyte Count 0.071 x10^6/uL (0.020-0.120) Percent Reticulocyte Count 2.2 % (0.5-2.3) Immature Reticulocyte Fraction 0.61 (0.20-0.60) Heparin Anti-Xa Act, Unfractionated 0.25 IU/mL (0.30-0.70) Sodium Level 140 mmol/L (136-145) Potassium Level 4.0 mmol/L (3.5-5.1) Chloride Level 106 mmol/L (98-107) Carbon Dioxide Level 26 mmol/L (21-32) Anion Gap 8 (6-14) Blood Urea Nitrogen 18 mg/dL (7-20) Creatinine 0.7 mg/dL (0.6-1.0) Estimated GFR (Cockcroft-Gault) 82.3 BUN/Creatinine Ratio 26 (6-20) Glucose Level 87 mg/dL (70-99) Calcium Level 8.7 mg/dL (8.5-10.1) Iron Level 27 ug/dL (50-170) Total Iron Binding Capacity 348 ug/dL (250-450) Iron Saturation 8 % (15-34) Ferritin 30 ng/mL (8-252) Total Bilirubin 0.7 mg/dL (0.2-1.0) Aspartate Amino Transf (AST/SGOT) 26 U/L (15-37) Alanine Aminotransferase (ALT/SGPT) 32 U/L (14-59) Alkaline Phosphatase 89 U/L (46-116) Lactate Dehydrogenase 189 U/L (81-234) Total Protein 5.8 g/dL (6.4-8.2) Albumin 2.6 g/dL (3.4-5.0) Albumin/Globulin Ratio 0.8 (1.0-1.7) Vitamin B12 Level 180 pg/mL (247-911) Assessment/Plan Assessment/Plan Assessment: Normocytic anemia, secondary to B12 and iron deficiency Pulmonary emboli Left lower extremity DVT Tobacco use History of melanoma Recommendations: -Requested and reviewed results of iron studies and B12. These are suggestive of iron deficiency and B12 deficiency. -I discussed results of iron studies with the patient. Given iron deficiency, I recommended EGD and colonoscopy. She has previously declined these but has now reconsidered and is interested in having these completed while inpatient -We will start parenteral B12 supplementation while inpatient -We will administer 1 dose of IV iron sucrose -Will follow and reviewed results of EGD and colonoscopy -Given iron deficiency and possible GI bleeding, reasonable to consider IVC filter placement but would recommend holding off until she completes EGD and colonoscopy -We will discuss recommendations for therapeutic anticoagulation based on results of EGD and colonoscopy -We will arrange outpatient follow-up with hematology for continued monitoring of CBC and reassess need for additional iron and B12 supplementation -Management of acute respiratory failure per Dr. Martel -Rest per Dr. Roland Byers MD Medical Oncology/Hematology Ph: [phone] DANIELLE BYERS MD Jun 15, 2020 14:43
[2020-06-15] MEDS ORDERED: IRON SUCROSE COMPLEX 400 MG in IV NORMAL SALINE 250ML 250 ML IV ONE (15:00)
[2020-06-15 15:03] VITALS: BP 123/60
[2020-06-15] MEDS ORDERED: CYANOCOBALAMIN (VITAMIN B-12) 1,000 MCG/ML VIAL. IM ONE (16:00)
[2020-06-15] MEDS: CYANOCOBALAMIN (VITAMIN B-12) 1,000 MCG/ML VIAL. IM SCH (16:09)
[2020-06-15 16:14] LABS: HEMATOCRIT 27.1 % (36.0-47.0); HEMOGLOBIN 8.7 g/dL (12.0-15.5)
[2020-06-15] MEDS: HEPARIN 25,000UTS/250ML PREMIX 250 ML IV PRN (18:39)
--- NOTE | 2020-06-15 19:26 | NUR ---
UFH at 1530 was 0.53. No change. New UFH ordered for 2129.
[2020-06-15 19:50] VITALS: BP 138/63
[2020-06-15] MEDS: ATORVASTATIN CALCIUM 40 MG TABLET. PO SCH (22:01)
[2020-06-15 23:05] VITALS: BP 130/58
[2020-06-16 03:25] VITALS: BP 133/65
[2020-06-16 07:00] VITALS: BP 130/65
[2020-06-16 07:24] LABS: CREATININE 0.7 mg/dL (0.6-1.0); GFR 82.3
[2020-06-16 07:48] LABS: HEMATOCRIT 27.7 % (36.0-47.0); HEMOGLOBIN 8.8 g/dL (12.0-15.5); RED BLOOD COUNT 3.38 x10^6/uL (3.50-5.40); RED CELL DISTRIBUTION WIDTH 18.7 % (11.5-14.5); WHITE BLOOD COUNT 10.6 x10^3/uL (4.0-11.0)
[2020-06-16] MEDS ORDERED: BISACODYL 5 MG TABLET.DR. PO ONE (10:00)
[2020-06-16] MEDS: ATENOLOL 50 MG TABLET. PO SCH (10:01)
[2020-06-16] MEDS: PANTOPRAZOLE 40 MG TABLET.DR. PO SCH (10:01)
[2020-06-16] MEDS: CYANOCOBALAMIN (VITAMIN B-12) 1,000 MCG/ML VIAL. IM SCH (10:02)
--- NOTE | 2020-06-16 10:05 | PN ---
DATE: 06/16/2020 SUBJECTIVE: The patient is resting, slightly propped up in bed, in no apparent respiratory distress. She is awake and alert. On questioning her, she denied any complaints and nursing staff did not voice any concerns that she had an eventful night. She apparently was seen by the oncologist and she is now agreeable for upper and lower GI endoscopy. PHYSICAL EXAMINATION: GENERAL: When I examined her this morning, she was pale, but not jaundiced or cyanosed. No lymphadenopathy. No thyromegaly. No jugular venous distension. No lower limb edema. VITAL SIGNS: Her heart rate was 65, blood pressure was 130/65, temperature was 97.9, respiratory rate was 21 and oxygen saturation was 91% on 3 liters of oxygen. The rest of clinical exam is stable. Her intake was 300, output was 1100. LABORATORY DATA: As of this morning, her white cell count was 10,600; hemoglobin 8.8; hematocrit 27.7; MCV 82 and platelet count 344,000. Her chemistry showed a serum sodium 137, potassium 4, chloride 104, bicarbonate 27, anion gap of 8, BUN 11, creatinine 0.7, estimated GFR was 82 mL per minute. Her glucose 162 and calcium was 9. Her iron studies and vitamin B12 are consistent with iron deficiency and vitamin B12 deficiency. ASSESSMENT: 1. Acute hypoxic respiratory failure, continues on 3 liters of oxygen by nasal cannula. 2. Bilateral pulmonary emboli and left lower extremity deep vein thrombosis. 3. Anemia that is both iron deficient and vitamin B12 deficiency; was started on vitamin B12 supplementation and apparently she is scheduled for upper and lower GI endoscopy tomorrow. 4. Probable chronic obstructive pulmonary disease given that she has been a smoker for more than 40 years and continues to smoke. MARYAM CHA MD DR: SY/drake JOB#: [id number] / [id number]
[2020-06-16] MEDS: ANTI-COAG MONITOR BY PHARMACY. MC PRN (10:35)
[2020-06-16 11:00] VITALS: BP 152/71
[2020-06-16] MEDS ORDERED: MAGNESIUM CITRATE 296 ML SOLUTION. PO ONE (11:00)
--- NOTE | 2020-06-16 11:40 | PDOC ---
Date of Service: DATE: 06/16/20 TIME: 11:38 Subjective: Subjective: NPO, doesn't know why. Objective: Objective: Nurse says possible plans for IVC filter. Called by nurse yesterday afternoon - pt agreeable to 'scopes after d/w hematology. Returned to see her - procedures and prep explained - she was agreeable. Vital Signs: Vital Signs Date Time Temp Pulse Resp B/P (MAP) Pulse Ox O2 Delivery O2 Flow Rate FiO2 06/16/20 11:00 98.0 55 18 152/71 (98) 94 Nasal Cannula 3.0 98.0 Labs: Laboratory Tests Test 06/15/20 15:55 06/15/20 21:00 06/16/20 06:42 06/16/20 09:00 Hemoglobin 8.7 g/dL 8.8 g/dL Hematocrit 27.1 % 27.7 % Haptoglobin 369 mg/dL Heparin Anti-Xa Act, Unfractionated 0.53 IU/mL 0.71 IU/mL 0.84 IU/mL Erythropoietin Pending Total Protein (PEP) Pending Albumin (PEP) Pending Globulin Pending Albumin/Globulin Ratio Pending [id number] Pending [id number] Pending Beta Globulins Pending Gamma Globulins Pending Protein Electrophoresis M-Rodrigue Pending Protein Electrophoresis Comment Pending Immunoglobulin [place]/Lambda Ratio Pending Free [place] Light Chains Pending Free Lambda Light Chains Pending White Blood Count 10.6 x10^3/uL Red Blood Count 3.38 x10^6/uL Mean Corpuscular Volume 82 fL Mean Corpuscular Hemoglobin 26 pg Mean Corpuscular Hemoglobin Concent 32 g/dL Red Cell Distribution Width 18.7 % Platelet Count 344 x10^3/uL Sodium Level 139 mmol/L Potassium Level 4.0 mmol/L Chloride Level 104 mmol/L Carbon Dioxide Level 27 mmol/L Anion Gap 8 Blood Urea Nitrogen 11 mg/dL Creatinine 0.7 mg/dL Estimated GFR (Cockcroft-Gault) 82.3 Glucose Level 162 mg/dL Calcium Level 9.0 mg/dL PE: GEN: NAD LUNGS: CTAB, NC HEART: RRR ABD: NABS, S/ND/NT NEURO/PSYCH: A & O 3 A/P: Bilateral PEs, LLE DVT EZIO, B12 deficient GERD, moderate hiatal hernia -- EGD and colonoscopy tomorrow after prep. Gave B12 yesterday. COVID negative @ [facility]. Justicifation of Admission Dx: Justifications for Admission: Justification of Admission Dx: Yes ESEQUIEL ISABEL Jun 16, 2020 11:40
[2020-06-16] MEDS ORDERED: POLYETHYLENE GLYCOL 3350 BTL 238 GM POWDER PO ONE (12:00)
[2020-06-16] MEDS: LISINOPRIL 20 MG TABLET PO SCH (12:39)
--- NOTE | 2020-06-16 14:09 | NUR ---
SS following up with discharge planning. SS reviewed pt chart and discussed with pt RN. Pt is currently requiring oxygen at three liters nasal canula. Pt on Heparin drip. IVC filter to be placed. SS will continue to follow for discharge planning.
[2020-06-16 15:00] VITALS: BP 150/81
[2020-06-16 15:16] LABS: KAPPA FREE 13.3 mg/L (3.3-19.4); KAPPA LAMBDA RATIO 0.89 (0.26-1.65); LAMBDA FREE 14.9 mg/L (5.7-26.3)
[2020-06-16 16:16] LABS: GLIA IGA 4 units (0-19); GLIA IGG 2 units (0-19); TRANSGLUTAMINASE IGA AB <2 U/mL (0-3); TRANSGLUTAMINASE IGG AB <2 U/mL (0-5)
[2020-06-16] MEDS: HEPARIN 25,000UTS/250ML PREMIX 250 ML IV PRN (17:51)
[2020-06-16 19:11] LABS: ALBUM 2.7 g/dL (2.9-4.4); ALPHA 1 0.3 g/dL (0.0-0.4); BETA 0.9 g/dL (0.7-1.3); GAMMA 0.6 g/dL (0.4-1.8); PROTEIN TOTAL 5.6 g/dL (6.0-8.5); SPEP AG RATIO 0.9 (0.7-1.7)
--- NOTE | 2020-06-16 19:20 | NUR ---
PT IN BED ASSESSMENT COMPLETED PT DENIED PAIN AT THIS TIME POC EXPLAINED CALL LIGHT IN REACH WILL RESUME CARE AND CONTINUE TO MONITOR PT.
[2020-06-16 19:26] VITALS: BP 127/78
[2020-06-16] MEDS: ATORVASTATIN CALCIUM 40 MG TABLET. PO SCH (21:04)
[2020-06-16 21:41] LABS: HEMATOCRIT 30.9 % (36.0-47.0); HEMOGLOBIN 9.9 g/dL (12.0-15.5)
[2020-06-16 22:33] VITALS: BP 122/55
[2020-06-17] VITALS (13 sets, daily range): BP systolic 109–154; BP diastolic 50–74
[2020-06-17 03:35] LABS: HEMATOCRIT 27.3 % (36.0-47.0); HEMOGLOBIN 8.7 g/dL (12.0-15.5); RED BLOOD COUNT 3.34 x10^6/uL (3.50-5.40); RED CELL DISTRIBUTION WIDTH 18.5 % (11.5-14.5); WHITE BLOOD COUNT 13.1 x10^3/uL (4.0-11.0)
[2020-06-17 03:52] LABS: ALBUMIN 2.7 g/dL (3.4-5.0); ALBUMIN/GLOBULIN RATIO 0.8 (1.0-1.7); CALCIUM 8.9 mg/dL (8.5-10.1); CREATININE 0.5 mg/dL (0.6-1.0); GFR 121.3; POTASSIUM 3.7 mmol/L (3.5-5.1); TOTAL BILIRUBIN 0.4 mg/dL (0.2-1.0); TOTAL PROTEIN 6.2 g/dL (6.4-8.2)
[2020-06-17] MEDS ORDERED: IV RINGERS,LACTATED 1000ML 1,000 ML IV ONE (06:30)
[2020-06-17] MEDS ORDERED: HYDROmorphone 2 MG/ML VIAL IV PRN (07:00)
[2020-06-17] MEDS ORDERED: ONDANSETRON PF 4 MG/2 ML VIAL. IV PRN (07:00)
[2020-06-17] MEDS ORDERED: MORPHINE SULFATE 2 MG/ML VIAL. IV PRN (07:00)
[2020-06-17] MEDS ORDERED: IV RINGERS,LACTATED 1000ML 1,000 ML IV SCH (07:00)
[2020-06-17] MEDS ORDERED: PROCHLORPERAZINE 10 MG/2 ML VIAL. IV PRN (07:00)
[2020-06-17] MEDS ORDERED: fentaNYL PF VIAL 100 MCG/2 ML VIAL IV PRN ×2 (07:00)
[2020-06-17] MEDS: CYANOCOBALAMIN (VITAMIN B-12) 1,000 MCG/ML VIAL. IM SCH (08:26)
--- NOTE | 2020-06-17 08:46 | PDOC ---
PULMONARY PROGRESS NOTES DATE: 06/17/20 TIME: 08:44 Subjective on 2 liters Denies SOA or Cough no reported bleeding or bruising Vitals Vital Signs Date Time Temp Pulse Resp B/P (MAP) Pulse Ox O2 Delivery O2 Flow Rate FiO2 06/17/20 07:00 98.0 63 18 149/74 (99) 98 Nasal Cannula 3.0 98.0 ROS: No Nausea, No Chest Pain, No Abdominal Pain, No Increase Cough General: Alert, Oriented X4 Lungs: Clear Cardiovascular: S1, S2 Abdomen: Soft, Non-tender Neuro Exam: Alert Extremities: No Edema Skin: Warm, Dry Labs Laboratory Tests Test 06/15/20 15:55 06/15/20 21:00 06/16/20 06:42 06/16/20 09:00 Hemoglobin 8.7 g/dL (12.0-15.5) 8.8 g/dL (12.0-15.5) Hematocrit 27.1 % (36.0-47.0) 27.7 % (36.0-47.0) Haptoglobin 369 mg/dL (42-346) Heparin Anti-Xa Act, Unfractionated 0.53 IU/mL (0.30-0.70) 0.71 IU/mL (0.30-0.70) 0.84 IU/mL (0.30-0.70) Erythropoietin 38.7 mIU/mL (2.6-18.5) Total Protein (PEP) 5.6 g/dL (6.0-8.5) Albumin (PEP) 2.7 g/dL (2.9-4.4) Globulin 2.9 g/dL (2.2-3.9) Albumin/Globulin Ratio 0.9 (0.7-1.7) Nqgbg-2-Ainwmhkns 0.3 g/dL (0.0-0.4) Hafep-5-Hvjijmfjo 1.0 g/dL (0.4-1.0) Beta Globulins 0.9 g/dL (0.7-1.3) Gamma Globulins 0.6 g/dL (0.4-1.8) Protein Electrophoresis M-Rodrigue Not observed g/dL (Not Protein Electrophoresis Comment Comment (.) Immunoglobulin [place]/Lambda Ratio 0.89 (0.26-1.65) Free [place] Light Chains 13.3 mg/L (3.3-19.4) Free Lambda Light Chains 14.9 mg/L (5.7-26.3) White Blood Count 10.6 x10^3/uL (4.0-11.0) Red Blood Count 3.38 x10^6/uL (3.50-5.40) Mean Corpuscular Volume 82 fL (79-100) Mean Corpuscular Hemoglobin 26 pg (25-35) Mean Corpuscular Hemoglobin Concent 32 g/dL (31-37) Red Cell Distribution Width 18.7 % (11.5-14.5) Platelet Count 344 x10^3/uL (140-400) Sodium Level 139 mmol/L (136-145) Potassium Level 4.0 mmol/L (3.5-5.1) Chloride Level 104 mmol/L (98-107) Carbon Dioxide Level 27 mmol/L (21-32) Anion Gap 8 (6-14) Blood Urea Nitrogen 11 mg/dL (7-20) Creatinine 0.7 mg/dL (0.6-1.0) Estimated GFR (Cockcroft-Gault) 82.3 Glucose Level 162 mg/dL (70-99) Calcium Level 9.0 mg/dL (8.5-10.1) Test 06/16/20 15:25 06/16/20 21:10 06/17/20 03:00 Heparin Anti-Xa Act, Unfractionated 0.69 IU/mL (0.30-0.70) 0.42 IU/mL (0.30-0.70) 0.51 IU/mL (0.30-0.70) Hemoglobin 9.9 g/dL (12.0-15.5) 8.7 g/dL (12.0-15.5) Hematocrit 30.9 % (36.0-47.0) 27.3 % (36.0-47.0) White Blood Count 13.1 x10^3/uL (4.0-11.0) Red Blood Count 3.34 x10^6/uL (3.50-5.40) Mean Corpuscular Volume 82 fL (79-100) Mean Corpuscular Hemoglobin 26 pg (25-35) Mean Corpuscular Hemoglobin Concent 32 g/dL (31-37) Red Cell Distribution Width 18.5 % (11.5-14.5) Platelet Count 351 x10^3/uL (140-400) Sodium Level 141 mmol/L (136-145) Potassium Level 3.7 mmol/L (3.5-5.1) Chloride Level 105 mmol/L (98-107) Carbon Dioxide Level 26 mmol/L (21-32) Anion Gap 10 (6-14) Blood Urea Nitrogen 10 mg/dL (7-20) Creatinine 0.5 mg/dL (0.6-1.0) Estimated GFR (Cockcroft-Gault) 121.3 BUN/Creatinine Ratio 20 (6-20) Glucose Level 102 mg/dL (70-99) Calcium Level 8.9 mg/dL (8.5-10.1) Total Bilirubin 0.4 mg/dL (0.2-1.0) Aspartate Amino Transf (AST/SGOT) 17 U/L (15-37) Alanine Aminotransferase (ALT/SGPT) 23 U/L (14-59) Alkaline Phosphatase 96 U/L (46-116) Total Protein 6.2 g/dL (6.4-8.2) Albumin 2.7 g/dL (3.4-5.0) Albumin/Globulin Ratio 0.8 (1.0-1.7) Laboratory Tests Test 06/16/20 09:00 06/16/20 15:25 06/16/20 21:10 06/17/20 03:00 Heparin Anti-Xa Act, Unfractionated 0.84 IU/mL (0.30-0.70) 0.69 IU/mL (0.30-0.70) 0.42 IU/mL (0.30-0.70) 0.51 IU/mL (0.30-0.70) Hemoglobin 9.9 g/dL (12.0-15.5) 8.7 g/dL (12.0-15.5) Hematocrit 30.9 % (36.0-47.0) 27.3 % (36.0-47.0) White Blood Count 13.1 x10^3/uL (4.0-11.0) Red Blood Count 3.34 x10^6/uL (3.50-5.40) Mean Corpuscular Volume 82 fL (79-100) Mean Corpuscular Hemoglobin 26 pg (25-35) Mean Corpuscular Hemoglobin Concent 32 g/dL (31-37) Red Cell Distribution Width 18.5 % (11.5-14.5) Platelet Count 351 x10^3/uL (140-400) Sodium Level 141 mmol/L (136-145) Potassium Level 3.7 mmol/L (3.5-5.1) Chloride Level 105 mmol/L (98-107) Carbon Dioxide Level 26 mmol/L (21-32) Anion Gap 10 (6-14) Blood Urea Nitrogen 10 mg/dL (7-20) Creatinine 0.5 mg/dL (0.6-1.0) Estimated GFR (Cockcroft-Gault) 121.3 BUN/Creatinine Ratio 20 (6-20) Glucose Level 102 mg/dL (70-99) Calcium Level 8.9 mg/dL (8.5-10.1) Total Bilirubin 0.4 mg/dL (0.2-1.0) Aspartate Amino Transf (AST/SGOT) 17 U/L (15-37) Alanine Aminotransferase (ALT/SGPT) 23 U/L (14-59) Alkaline Phosphatase 96 U/L (46-116) Total Protein 6.2 g/dL (6.4-8.2) Albumin 2.7 g/dL (3.4-5.0) Albumin/Globulin Ratio 0.8 (1.0-1.7) Medications Active Scripts Medications Dose Route/Sig Max Daily Dose Days Date Category Atorvastatin Calcium 40 Mg Tablet 1 Tab PO QHS 06/14/20 Reported Omeprazole 20 Mg Tablet.dr 20 Mg PO DAILY 06/14/20 Reported Atenolol 50 Mg Tablet 1 Tab PO DAILY 06/14/20 Reported Lisinopril 40 Mg Tablet 1 Tab PO DAILY 06/14/20 Reported Spiriva (Tiotropium [place]) 18 Mcg Cap.w.dev 1 Cap IH DAILY 06/14/20 Reported Impression . IMPRESSION: 1. Acute hypoxic respiratory failure secondary to bilateral acute pulmonary embolism and deep venous thrombosis involving the left lower extremity. Risk factor being immobile around Thanksgiving time related to back injury. She was immobile for 6-8 weeks. There is no active cancer. The melanoma was resected from her scalp in 2003 and has no recurrence per the patient's history. The patient has 40 years of tobacco use and there is abnormal cystic like density in the left upper lobe and needs to be closely followed up for any lung malignancy. 2. Anemia without any obvious gastrointestinal bleed. Needs to closely follow up. If hemoglobin continues to fall, then she may need inferior vena cava filter. 3. Long history of tobacco use for 40 years, suspect underlying chronic obstructive pulmonary disease. Plan . RECOMMENDATIONS: Continue Supplemental oxygen, currently on 2 liters N/C Monitor HGB, S/P PRBC 1 unit 06/14/20 Continue heparin gtt for PE/DVT Consider doing IVC filter if ongoing anemia or not candidate for fci A/C Follow Hem/Onc recs Follow GI recs- planned for EGD/colonoscopy, Await their recommendations regarding safety of fci AC Follow up CT chest followup in 6-8 weeks to make sure pulmonary emboli resolved and also the left upper lobe cystic lesion appears to have improved along with some solid density in the left upper lobe improved as well. Obtain venous Dopplers in 6-8 weeks to make sure there is resolution of thromboembolic disease. PT/OT D/W LYNNE NAIDU MD Jun 17, 2020 08:46
--- NOTE | 2020-06-17 09:57 | PN ---
DATE: 06/17/2020 SUBJECTIVE: The patient is resting, slightly propped up in bed, in no apparent distress. She is awake, alert, continued to have cough, but denied any phlegm or hemoptysis. She has had bowel preparation. She has had multiple loose bowel movements. PHYSICAL EXAMINATION: GENERAL: When I examined her, she looked pale, but no jaundice, cyanosis or thyromegaly. No jugular venous distention. No lower limb edema. VITAL SIGNS: Her heart rate was 63, blood pressure was 149/74, temperature was 98, respiratory rate was 18 and oxygen saturation was 98% on 3 liters of oxygen. HEAD, EYES, EARS, NOSE AND THROAT: Showed normocephalic, atraumatic. NECK: Supple. HEART: Normal first and second heart sounds. No gallop, rub or murmur. CHEST: Clear to auscultation. No crepitation or rhonchi anteriorly. ABDOMEN: Distended, soft, nontender. NEUROLOGIC: She is grossly intact. Her intake was 1400, output was 1850. LABORATORY DATA: Showed a white cell count of 13,000, hemoglobin 8.7, hematocrit 27.3, MCV 82 and platelet count 351,000. Her chemistry showed a serum sodium 141, potassium 3.7, chloride 105, bicarbonate 26, anion gap of 10, BUN 10, creatinine 0.5, estimated GFR was 121 mL per minute. Her glucose 102 and calcium was 8.9. Total bilirubin, AST, ALT, alkaline phosphatase were normal. Total protein 6.2, albumin was 2.7. ASSESSMENT: 1. Acute hypoxic respiratory failure for which she continues to be on 3 liters of oxygen by nasal cannula. 2. Bilateral pulmonary emboli and left lower extremity deep vein thrombosis. 3. Anemia that is both iron deficiency and vitamin B12 deficient, started on vitamin B12 supplementation and apparently she is scheduled today for upper and lower GI endoscopy. 4. Probable chronic obstructive pulmonary disease given that she has been a smoker for more than 40 years, she continued to be everyday smoker. PLAN: Obviously to continue with heparin. Apparently, the candy supervisor did not want to stop the heparin during the procedure. We will obviously decide in collaboration with the sales promotion coordinator and the candy supervisor as to whether it is appropriate to start her on anticoagulation or to pursue the IVC filter placement. MARYAM CHA MD DR: SY/drake JOB#: [id number] / [id number]
[2020-06-17] MEDS ORDERED: LIDOCAINE 2% PF 5 ML VIAL. ONE (12:29)
[2020-06-17] MEDS ORDERED: PROPOFOL 10 MG/ML (20ML) VIAL. IV ONE (12:29)
--- NOTE | 2020-06-17 13:41 | PDOC4 ---
PROCEDURE Procedure EGD with biopsies/colonoscopy Indication: EZIO Meds: per anesthesia Findings: E--Normal. GEJ at 30cm. G--Large HH from 30-40 cm. At least one Deniz lesion seen. Patchy mild antral erythema, biopsied. D--Normal to second portion; biopsies taken. NANCY--normal --'Scope advanced to cecum. Mucosa normal. Prep adequate. Diverticulosis sigmoid to transverse. No mass lesions, etc. IH's on retroflex. Wes. well. IMP: HH-associated erosions (Deniz lesions); can be a cause of EZIO. Gastric and duodenal biopsies taken re: H.pylori and Celiac respectively. Diverticulosis Internal hemorrhoids. REC: Await path. Would seem full anticoagulation would be safe. Note B12 deficient; have occasionally seen patients who present as EZIO and have B12 deficiency where treatment with B12 normalizes the iron studies and anemia. PO iron as well. JENAE MATIAS MD Jun 17, 2020 13:41
--- NOTE | 2020-06-17 14:02 | NUR ---
RN NOTE this RN took over care for this patient and agrees with previous RNs assessments. patient off unit at this time.
[2020-06-17] MEDS: APIXABAN 5 MG TABLET. PO SCH ×2 (15:00→21:05)
[2020-06-17] MEDS: LISINOPRIL 20 MG TABLET PO SCH (15:03)
[2020-06-17] MEDS: PANTOPRAZOLE 40 MG TABLET.DR. PO SCH (15:03)
[2020-06-17] MEDS: ATENOLOL 50 MG TABLET. PO SCH (15:03)
--- NOTE | 2020-06-17 15:08 | NUR ---
SS following up with discharge planning. SS reviewed pt chart and discussed with pt RN. Pt is currently requiring oxygen. Heparin drip discontinued. Pt started on Eliquis. No IVC filter at this time. Pt had EGD. SS will continue to follow for discharge planning. Addendum: 06/17/20 at 1511 by SADAF AYOUB SS PT/OT ordered and recommended home independent. SS will continue to follow for discharge planning.
[2020-06-17 18:55] LABS: HEMATOCRIT 28.8 % (36.0-47.0)
[2020-06-17] MEDS: ATORVASTATIN CALCIUM 40 MG TABLET. PO SCH (21:05)
[2020-06-18 03:34] VITALS: BP 109/43
[2020-06-18 05:27] LABS: HEMATOCRIT 26.8 % (36.0-47.0); HEMOGLOBIN 8.6 g/dL (12.0-15.5); RED BLOOD COUNT 3.25 x10^6/uL (3.50-5.40)
[2020-06-18 05:34] LABS: CALCIUM 8.7 mg/dL (8.5-10.1); CREATININE 0.6 mg/dL (0.6-1.0); GFR 98.3; POTASSIUM 3.7 mmol/L (3.5-5.1)
[2020-06-18 07:00] VITALS: BP 100/49
[2020-06-18] MEDS: APIXABAN 5 MG TABLET. PO SCH ×2 (08:56→20:26)
[2020-06-18] MEDS: PANTOPRAZOLE 40 MG TABLET.DR. PO SCH (08:56)
[2020-06-18] MEDS: CYANOCOBALAMIN (VITAMIN B-12) 1,000 MCG/ML VIAL. IM SCH (08:57)
[2020-06-18] MEDS: LISINOPRIL 20 MG TABLET PO SCH (09:00)
[2020-06-18] MEDS: ATENOLOL 50 MG TABLET. PO SCH (09:00)
--- NOTE | 2020-06-18 09:14 | PDOC ---
PULMONARY PROGRESS NOTES DATE: 06/18/20 TIME: 09:09 Subjective on 2 liters Denies SOA or Cough no reported bleeding or bruising Vitals Vital Signs Date Time Temp Pulse Resp B/P (MAP) Pulse Ox O2 Delivery O2 Flow Rate FiO2 06/18/20 08:00 Room Air 06/18/20 07:00 98.0 58 18 100/49 (66) 94 3.0 98.0 ROS: No Nausea, No Chest Pain, No Abdominal Pain, No Increase Cough General: Alert, Oriented X4 Lungs: Clear Cardiovascular: S1, S2 Abdomen: Soft, Non-tender Neuro Exam: Alert Extremities: No Edema Skin: Warm, Dry Labs Laboratory Tests Test 06/16/20 15:25 06/16/20 21:10 06/17/20 03:00 06/17/20 18:00 Heparin Anti-Xa Act, Unfractionated 0.69 IU/mL (0.30-0.70) 0.42 IU/mL (0.30-0.70) 0.51 IU/mL (0.30-0.70) Hemoglobin 9.9 g/dL (12.0-15.5) 8.7 g/dL (12.0-15.5) 9.0 g/dL (12.0-15.5) Hematocrit 30.9 % (36.0-47.0) 27.3 % (36.0-47.0) 28.8 % (36.0-47.0) White Blood Count 13.1 x10^3/uL (4.0-11.0) Red Blood Count 3.34 x10^6/uL (3.50-5.40) Mean Corpuscular Volume 82 fL (79-100) Mean Corpuscular Hemoglobin 26 pg (25-35) Mean Corpuscular Hemoglobin Concent 32 g/dL (31-37) Red Cell Distribution Width 18.5 % (11.5-14.5) Platelet Count 351 x10^3/uL (140-400) Sodium Level 141 mmol/L (136-145) Potassium Level 3.7 mmol/L (3.5-5.1) Chloride Level 105 mmol/L (98-107) Carbon Dioxide Level 26 mmol/L (21-32) Anion Gap 10 (6-14) Blood Urea Nitrogen 10 mg/dL (7-20) Creatinine 0.5 mg/dL (0.6-1.0) Estimated GFR (Cockcroft-Gault) 121.3 BUN/Creatinine Ratio 20 (6-20) Glucose Level 102 mg/dL (70-99) Calcium Level 8.9 mg/dL (8.5-10.1) Total Bilirubin 0.4 mg/dL (0.2-1.0) Aspartate Amino Transf (AST/SGOT) 17 U/L (15-37) Alanine Aminotransferase (ALT/SGPT) 23 U/L (14-59) Alkaline Phosphatase 96 U/L (46-116) Total Protein 6.2 g/dL (6.4-8.2) Albumin 2.7 g/dL (3.4-5.0) Albumin/Globulin Ratio 0.8 (1.0-1.7) Test 06/18/20 05:00 White Blood Count 11.0 x10^3/uL (4.0-11.0) Red Blood Count 3.25 x10^6/uL (3.50-5.40) Hemoglobin 8.6 g/dL (12.0-15.5) Hematocrit 26.8 % (36.0-47.0) Mean Corpuscular Volume 82 fL (79-100) Mean Corpuscular Hemoglobin 26 pg (25-35) Mean Corpuscular Hemoglobin Concent 32 g/dL (31-37) Red Cell Distribution Width 19.0 % (11.5-14.5) Platelet Count 379 x10^3/uL (140-400) Sodium Level 140 mmol/L (136-145) Potassium Level 3.7 mmol/L (3.5-5.1) Chloride Level 105 mmol/L (98-107) Carbon Dioxide Level 26 mmol/L (21-32) Anion Gap 9 (6-14) Blood Urea Nitrogen 11 mg/dL (7-20) Creatinine 0.6 mg/dL (0.6-1.0) Estimated GFR (Cockcroft-Gault) 98.3 Glucose Level 95 mg/dL (70-99) Calcium Level 8.7 mg/dL (8.5-10.1) Laboratory Tests Test 06/17/20 18:00 06/18/20 05:00 Hemoglobin 9.0 g/dL (12.0-15.5) 8.6 g/dL (12.0-15.5) Hematocrit 28.8 % (36.0-47.0) 26.8 % (36.0-47.0) White Blood Count 11.0 x10^3/uL (4.0-11.0) Red Blood Count 3.25 x10^6/uL (3.50-5.40) Mean Corpuscular Volume 82 fL (79-100) Mean Corpuscular Hemoglobin 26 pg (25-35) Mean Corpuscular Hemoglobin Concent 32 g/dL (31-37) Red Cell Distribution Width 19.0 % (11.5-14.5) Platelet Count 379 x10^3/uL (140-400) Sodium Level 140 mmol/L (136-145) Potassium Level 3.7 mmol/L (3.5-5.1) Chloride Level 105 mmol/L (98-107) Carbon Dioxide Level 26 mmol/L (21-32) Anion Gap 9 (6-14) Blood Urea Nitrogen 11 mg/dL (7-20) Creatinine 0.6 mg/dL (0.6-1.0) Estimated GFR (Cockcroft-Gault) 98.3 Glucose Level 95 mg/dL (70-99) Calcium Level 8.7 mg/dL (8.5-10.1) Medications Active Scripts Medications Dose Route/Sig Max Daily Dose Days Date Category Atorvastatin Calcium 40 Mg Tablet 1 Tab PO QHS 06/14/20 Reported Omeprazole 20 Mg Tablet.dr 20 Mg PO DAILY 06/14/20 Reported Atenolol 50 Mg Tablet 1 Tab PO DAILY 06/14/20 Reported Lisinopril 40 Mg Tablet 1 Tab PO DAILY 06/14/20 Reported Spiriva (Tiotropium [place]) 18 Mcg Cap.w.dev 1 Cap IH DAILY 06/14/20 Reported Impression . IMPRESSION: 1. Acute hypoxic respiratory failure secondary to bilateral acute pulmonary embolism and deep venous thrombosis involving the left lower extremity. Risk factor being immobile around Thanksgiving time related to back injury. She was immobile for 6-8 weeks. There is no active cancer. The melanoma was resected from her scalp in 2003 and has no recurrence per the patient's history. The patient has 40 years of tobacco use and there is abnormal cystic like density in the left upper lobe and needs to be closely followed up for any lung malignancy. 2. Anemia without any obvious gastrointestinal source. 3. Long history of tobacco use for 40 years, suspect underlying chronic obstructive pulmonary disease. Plan . RECOMMENDATIONS: Continue Supplemental oxygen, currently on 2 liters N/C Monitor HGB, S/P PRBC 1 unit 06/14/20 started on Eliquis for PE/DVT no need for IVC filter at present Follow GI/ Heme recs s/p EGD/colonoscopy,Per GI , ok with group home AC Follow up CT chest followup in 6-8 weeks to make sure pulmonary emboli resolved and also the left upper lobe cystic lesion appears to have improved along with some solid density in the left upper lobe improved as well. Obtain venous Dopplers in 6-8 weeks to make sure there is resolution of thromboembolic disease. PT/OT D/W RN mi home in [place] Kenney MD Jun 18, 2020 09:14
--- NOTE | 2020-06-18 10:30 | PN ---
DATE: 06/18/2020 SUBJECTIVE: The patient is resting, slightly propped up in bed, in no apparent distress, continued to have cough. Denied any other complaints, in particular denied any hemoptysis. She apparently had had upper and lower GI endoscopy. Her esophagus was normal. The stomach showed large hiatal hernia, at least one Deniz lesion is seen, patchy mild antral erythema, biopsied. The duodenum was normal to the second portion of biopsies taken. On colonoscopy, the scope was advanced to the cecum. Mucosa is normal. Preparation was adequate. She has diverticulosis in sigmoid to transverse. No mass or lesion. Internal hemorrhoids on retroflexion. Given the finding, it was felt that it is safe to fully anticoagulate her and we did start her on apixaban 10 mg twice a day for 7 days. We will obviously continue to replenish her B12 and iron deficiency. PHYSICAL EXAMINATION: GENERAL: When I saw her this morning, she looked pale, but no jaundice, cyanosis or thyromegaly. No jugular venous distention. No lower limb edema. VITAL SIGNS: Her heart rate was 58, blood pressure was 100/49, temperature was 98, respiratory rate was 18 and oxygen saturation was 94% on 3 liters of oxygen. HEAD, EYES, EARS, NOSE, AND THROAT: Showed normocephalic, atraumatic. NECK: Supple. HEART: Showed normal first and second heart sounds. No gallop or murmur. CHEST: Clear to auscultation. No crepitation or rhonchi. ABDOMEN: Distended, soft, nontender. No guarding or rigidity. No organomegaly. All hernial orifice intact. Bowel sounds normal. NEUROLOGIC: She is grossly intact. Her intake over the last 24 hours was 740, output was 700. LABORATORY DATA: As of this morning, her white cell count was 11,000; hemoglobin 8.6; hematocrit 26.8; MCV 82 and platelet count of 379,000. Her chemistry showed a serum sodium 140, potassium 3.7, chloride 105, bicarbonate 26, anion gap of 9, BUN 11, creatinine 0.6, estimated GFR was 98 mL per minute. Her glucose was 95 and calcium was 8.7. Total bilirubin, AST, ALT, alkaline phosphatase were normal. Total protein 6.2, albumin 2.7. ASSESSMENT: 1. Acute hypoxic respiratory failure. She continues to be on 3 liters of oxygen by nasal cannula. 2. Bilateral pulmonary emboli and left lower extremity deep vein thrombosis. 3. Anemia, both iron and vitamin B12 deficient, for which she received B12 supplementation. 4. Her upper and lower GI endoscopy was unremarkable and the shoe singer recommended full anticoagulation. 5. Probable chronic obstructive pulmonary disease given that she has been a smoker for more than 40 years and continued to be an everyday smoker. PLAN: My plan is to order some IV Venofer today and if her H and H remained stable tomorrow, she can be discharged home. MARYAM CHA MD DR: SY/drake JOB#: [id number] / [id number]
[2020-06-18 11:00] VITALS: BP 105/65
[2020-06-18] MEDS ORDERED: IRON SUCROSE COMPLEX 200 MG in IV NORMAL SALINE 100ML 100 ML IV ONE (12:00)
--- NOTE | 2020-06-18 12:21 | PDOC ---
FOLLOW UP Hematology Note: Noted results of EGD and conolonoscopy showing no active bleeding. Agree with IV iron and DC thereafter. Agree with resuming therapeutic AC. Recommend and will arrange follow-up in hematology clinic to assess tolerance of anticoagulation and need for additional parenteral iron and B12 supplementation. Please call [phone] with any questions/concerns. DANIELLE BYERS MD Jun 18, 2020 12:21
[2020-06-18 15:00] VITALS: BP 105/62
[2020-06-18] MEDS ORDERED: GLYCOPYRROLATE 1 MG/5 ML SYRINGE. ONE (15:35)
[2020-06-18 16:12] LABS: HEMATOCRIT 28.7 % (36.0-47.0); HEMOGLOBIN 9.1 g/dL (12.0-15.5)
[2020-06-18 19:30] VITALS: BP 127/55
[2020-06-18] MEDS: ATORVASTATIN CALCIUM 40 MG TABLET. PO SCH (20:25)
[2020-06-18 22:33] VITALS: BP 113/58
[2020-06-19 02:44] VITALS: BP 119/49
[2020-06-19 04:40] LABS: HEMATOCRIT 26.6 % (36.0-47.0); HEMOGLOBIN 8.6 g/dL (12.0-15.5); RED BLOOD COUNT 3.23 x10^6/uL (3.50-5.40); RED CELL DISTRIBUTION WIDTH 19.2 % (11.5-14.5); WHITE BLOOD COUNT 8.3 x10^3/uL (4.0-11.0)
[2020-06-19 05:00] LABS: CALCIUM 8.8 mg/dL (8.5-10.1); CREATININE 0.7 mg/dL (0.6-1.0); GFR 82.3; POTASSIUM 3.6 mmol/L (3.5-5.1)
[2020-06-19 07:00] VITALS: BP 121/61
[2020-06-19] MEDS: LISINOPRIL 20 MG TABLET PO SCH (08:48)
[2020-06-19] MEDS: APIXABAN 5 MG TABLET. PO SCH ×2 (08:48→21:25)
[2020-06-19] MEDS: PANTOPRAZOLE 40 MG TABLET.DR. PO SCH (08:48)
[2020-06-19] MEDS: ATENOLOL 50 MG TABLET. PO SCH (08:48)
[2020-06-19] MEDS: CYANOCOBALAMIN (VITAMIN B-12) 1,000 MCG/ML VIAL. IM SCH (08:49)
[2020-06-19] MEDS ORDERED: FERR324T2 PO (09:11)
[2020-06-19] MEDS ORDERED: ASCO500C PO (09:13)
--- NOTE | 2020-06-19 09:45 | PDOC ---
PULMONARY PROGRESS NOTES DATE: 06/19/20 TIME: 09:42 Subjective On 2 liters Denies SOA or Cough no reported bleeding or bruising Vitals Vital Signs Date Time Temp Pulse Resp B/P (MAP) Pulse Ox O2 Delivery O2 Flow Rate FiO2 06/19/20 08:48 69 121/61 06/19/20 08:00 Room Air 06/19/20 07:00 98.6 18 96 3.0 98.6 ROS: No Nausea, No Chest Pain, No Abdominal Pain, No Increase Cough General: Alert, Oriented X4 Lungs: Clear Cardiovascular: S1, S2 Abdomen: Soft, Non-tender Neuro Exam: Alert Extremities: No Edema Skin: Warm, Dry Labs Laboratory Tests Test 06/17/20 18:00 06/18/20 05:00 06/18/20 16:02 06/19/20 04:30 Hemoglobin 9.0 g/dL (12.0-15.5) 8.6 g/dL (12.0-15.5) 9.1 g/dL (12.0-15.5) 8.6 g/dL (12.0-15.5) Hematocrit 28.8 % (36.0-47.0) 26.8 % (36.0-47.0) 28.7 % (36.0-47.0) 26.6 % (36.0-47.0) White Blood Count 11.0 x10^3/uL (4.0-11.0) 8.3 x10^3/uL (4.0-11.0) Red Blood Count 3.25 x10^6/uL (3.50-5.40) 3.23 x10^6/uL (3.50-5.40) Mean Corpuscular Volume 82 fL (79-100) 83 fL (79-100) Mean Corpuscular Hemoglobin 26 pg (25-35) 27 pg (25-35) Mean Corpuscular Hemoglobin Concent 32 g/dL (31-37) 32 g/dL (31-37) Red Cell Distribution Width 19.0 % (11.5-14.5) 19.2 % (11.5-14.5) Platelet Count 379 x10^3/uL (140-400) 364 x10^3/uL (140-400) Sodium Level 140 mmol/L (136-145) 141 mmol/L (136-145) Potassium Level 3.7 mmol/L (3.5-5.1) 3.6 mmol/L (3.5-5.1) Chloride Level 105 mmol/L (98-107) 106 mmol/L (98-107) Carbon Dioxide Level 26 mmol/L (21-32) 27 mmol/L (21-32) Anion Gap 9 (6-14) 8 (6-14) Blood Urea Nitrogen 11 mg/dL (7-20) 11 mg/dL (7-20) Creatinine 0.6 mg/dL (0.6-1.0) 0.7 mg/dL (0.6-1.0) Estimated GFR (Cockcroft-Gault) 98.3 82.3 Glucose Level 95 mg/dL (70-99) 103 mg/dL (70-99) Calcium Level 8.7 mg/dL (8.5-10.1) 8.8 mg/dL (8.5-10.1) Laboratory Tests Test 06/18/20 16:02 06/19/20 04:30 Hemoglobin 9.1 g/dL (12.0-15.5) 8.6 g/dL (12.0-15.5) Hematocrit 28.7 % (36.0-47.0) 26.6 % (36.0-47.0) White Blood Count 8.3 x10^3/uL (4.0-11.0) Red Blood Count 3.23 x10^6/uL (3.50-5.40) Mean Corpuscular Volume 83 fL (79-100) Mean Corpuscular Hemoglobin 27 pg (25-35) Mean Corpuscular Hemoglobin Concent 32 g/dL (31-37) Red Cell Distribution Width 19.2 % (11.5-14.5) Platelet Count 364 x10^3/uL (140-400) Sodium Level 141 mmol/L (136-145) Potassium Level 3.6 mmol/L (3.5-5.1) Chloride Level 106 mmol/L (98-107) Carbon Dioxide Level 27 mmol/L (21-32) Anion Gap 8 (6-14) Blood Urea Nitrogen 11 mg/dL (7-20) Creatinine 0.7 mg/dL (0.6-1.0) Estimated GFR (Cockcroft-Gault) 82.3 Glucose Level 103 mg/dL (70-99) Calcium Level 8.8 mg/dL (8.5-10.1) Medications Active Scripts Medications Dose Route/Sig Max Daily Dose Days Date Category Atorvastatin Calcium 40 Mg Tablet 1 Tab PO QHS 06/14/20 Reported Omeprazole 20 Mg Tablet.dr 20 Mg PO DAILY 06/14/20 Reported Atenolol 50 Mg Tablet 1 Tab PO DAILY 06/14/20 Reported Lisinopril 40 Mg Tablet 1 Tab PO DAILY 06/14/20 Reported Spiriva (Tiotropium [place]) 18 Mcg Cap.w.dev 1 Cap IH DAILY 06/14/20 Reported Impression . IMPRESSION: 1. Acute hypoxic respiratory failure secondary to bilateral acute pulmonary embolism and deep venous thrombosis involving the left lower extremity. Risk factor being immobile around Thanksgiving time related to back injury. She was immobile for 6-8 weeks. There is no active cancer. The melanoma was resected from her scalp in 2003 and has no recurrence per the patient's history. The patient has 40 years of tobacco use and there is abnormal cystic like density in the left upper lobe and needs to be closely followed up for any lung malignancy. 2. Anemia without any obvious gastrointestinal source. 3. Long history of tobacco use for 40 years, suspect underlying chronic obstructive pulmonary disease. Plan . RECOMMENDATIONS: Continue Supplemental oxygen, currently on 2 liters N/C, 6 min walk before D/C Monitor HGB, S/P PRBC 1 unit 06/14/20 started on Eliquis for PE/DVT no need for IVC filter at present Follow GI/ Heme recs s/p EGD/colonoscopy,Per GI , ok with parts counterman AC Follow up CT chest followup in 6-8 weeks to make sure pulmonary emboli resolved and also the left upper lobe cystic lesion appears to have improved along with some solid density in the left upper lobe improved as well. Obtain venous Dopplers in 6-8 weeks to make sure there is resolution of thromboembolic disease. PT/OT D/W RN ok to D/C home today from our standpoint, will follow up with us in office in [place] Holman MD Jun 19, 2020 09:45
[2020-06-19] MEDS ORDERED: IRON SUCROSE COMPLEX 500 MG in IV NORMAL SALINE 250ML 250 ML IV ONE (10:00)
[2020-06-19 11:00] VITALS: BP 103/59
[2020-06-19 15:00] VITALS: BP 113/58
[2020-06-19 19:08] VITALS: BP 107/48
[2020-06-19] MEDS: ATORVASTATIN CALCIUM 40 MG TABLET. PO SCH (21:25)
[2020-06-19 22:20] VITALS: BP 144/44
[2020-06-20 03:08] VITALS: BP 95/57
[2020-06-20 07:00] VITALS: BP 113/50
[2020-06-20] MEDS ORDERED: APIX5TAB PO (08:15)
--- NOTE | 2020-06-20 08:20 | SNU/HH DC ---
DISCHARGE WITH HOME HEALTH DISCHARGE INFORMATION: Discharge Date: Jun 20, 2020 Final Diagnosis: Bilateral pulmonary emboli LLE DVT Acute hypoxic respiratory failure chronic obstructive pulmonary disease vitamin B12 Deficiency EZIO Condition on Discharge: Stable CODE STATUS: Code Status: Full HOME HEALTH: Face to Face: I certify this patient is under my care and that I, or a nurse practitioner or physician's assistant finance manager working with me, had a face to face encounter that meets the physician face to face encounter requirements with this patient on 06/20/2020 Medical Complications: Other RN For Eval/Treatment: Yes Physical Therapy For: Evalulation/Treatment Occupational Therapy For: Evaluation/Treatment Pt Meets Homebound Status: Extreme weakness w/ amb. POST DISCHARGE ORDERS: DIET AFTER DISCHARGE: Regular CERTIFICATION STATEMENT: Certification Statement: Certification Statement: Based on the above finding, I certify that this patient is confined to the home and needs intermittent senior care care, physical therapy and/or speech therapy, or continues to need occupational therapy.~ This patient is under my care, and I have initiated the establishment of the plan of care.~ This patient will be followed by myself or a community physician who will periodically review the plan of care. Home Meds Reported Medications Atorvastatin Calcium (ATORVASTATIN CALCIUM) 40 Mg Tablet, 1 TAB PO QHS for , #90 TAB 3 Refills 06/14/20 Omeprazole (OMEPRAZOLE) 20 Mg Tablet.dr, 20 MG PO DAILY for , TAB 06/14/20 Atenolol (ATENOLOL) 50 Mg Tablet, 1 TAB PO DAILY for , #30 TAB 5 Refills 06/14/20 Lisinopril (LISINOPRIL) 40 Mg Tablet, 1 TAB PO DAILY for , #30 TAB 5 Refills 06/14/20 Tiotropium [place] (SPIRIVA) 18 Mcg Cap.w.dev, 1 CAP IH DAILY for , #30 CAP 3 Refills 06/14/20 MARYAM CHA MD Jun 20, 2020 08:20
[2020-06-20] MEDS: APIXABAN 5 MG TABLET. PO SCH (08:33)
[2020-06-20] MEDS: PANTOPRAZOLE 40 MG TABLET.DR. PO SCH (08:33)
[2020-06-20] MEDS: ATENOLOL 50 MG TABLET. PO SCH (08:35)
[2020-06-20] MEDS: LISINOPRIL 20 MG TABLET PO SCH (08:35)
[2020-06-20] MEDS: CYANOCOBALAMIN (VITAMIN B-12) 1,000 MCG/ML VIAL. IM SCH (08:36)
--- NOTE | 2020-06-20 09:29 | DS ---
DATE OF DISCHARGE: 06/20/2020 HOSPITAL COURSE: The patient is a 74-year-old female patient who was admitted to [facility] through the Emergency Room on 06/12/2020 with a complaint of nonproductive cough for the last 2 weeks, worsening shortness of breath that has worsened over the past 5-6 days prior to admission. The patient has no known history of coronary artery disease, has never had any history of DVT or PE. She did have back surgery recently about 6 weeks prior to admission. She has not been tested for COVID this year and lives with her family members. None of her family members was tested positive. She was extensively investigated, had an EKG which showed that she was in sinus rhythm with a heart rate of 88 beats per minute. Her chest x-ray showed normal lung volumes, no pulmonary masses or consolidation, no pneumothorax or pleural effusion. Her lab work showed that the patient has microcytic hypochromic anemia. Her white cell count was 14,700, however, hemoglobin was only 7, hematocrit 22, MCV 79 and platelet count 399,000 with normal manual differential. Her D-dimer was extremely high at 6.16 and therefore, she underwent a CT angio of the chest and was found to have moderate burden of bilateral pulmonary thromboembolic disease involving segmental and subsegmental branches of all 5 lobes with no right heart strain. Lungs and airways, left upper lobe showed areas of bubbly lucencies with linear opacities and architectural distortion, symmetric right apical opacities, however, there was no abnormality of central airways. She did have small right-sided pleural effusion. The visualized thyroid is normal in size and attenuation. There were no axillary or supraclavicular lymphadenopathy. No mediastinal, hilar or retrosternal lymphadenopathy. The heart size was normal with no pericardial effusion. She did have an indeterminate T12 compression fracture deformity with 50% vertebral body height loss. Given the need that she has anemia as well as multiple bilateral pulmonary emboli and she was started on heparin drip and was transferred to [facility] to consult the sports marketing internship as well as the academic affairs dean and the interventional radiologist as she might require an IVC filter, she was continued on heparin drip, she was seen in consultation by the sports marketing internship as well as the academic affairs dean. She underwent upper and lower GI endoscopy, which showed no abnormalities except that she has hiatal hernia. She did actually require 2 units of packed RBCs, but there was no obvious site of bleeding and therefore, a decision was made to fully anticoagulate her and was started on apixaban 10 mg twice a day. She was seen also by the tiger machine operator/oncologist and was found to have vitamin B12 and iron deficiency. She was treated with 1000 mcg of cyanocobalamin intramuscular and was given Venofer initially 200 mg the first day and then 500 mg second day and was discharged home to continue on ferrous gluconate as well as ascorbic acid. PHYSICAL EXAMINATION: GENERAL: When I saw her today, she was sitting slightly propped up in bed, in no apparent respiratory distress. She was pale, but no jaundice, cyanosis or thyromegaly. No jugular venous distention. No limb edema. VITAL SIGNS: Her heart rate was 94, blood pressure was 113/50, her temperature was 98, respiratory rate was 16, and oxygen saturation was 96% on 2 liters of oxygen. HEAD, EYES, EARS, NOSE AND THROAT: Showed normocephalic, atraumatic. NECK: Supple. HEART: Normal first and second heart sounds. No gallop, rub or murmur. CHEST: Clear to auscultation. No crepitation or rhonchi. ABDOMEN: Distended, soft, nontender. NEUROLOGIC: She was grossly intact. Her intake and output were incompletely recorded. LABORATORY DATA: As of yesterday, her white cell count was 8300, hemoglobin 8.6, hematocrit 26.6, MCV 83, and platelet count of 364,000. Her chemistry showed a serum sodium 141, potassium 3.6, chloride 106, bicarbonate 27, anion gap of 8, BUN 11, creatinine 0.7, estimated GFR was 82 mL per minute, her glucose 103, calcium was 8.8. DISCHARGE MEDICATIONS: She was discharged home to continue on apixaban 10 mg twice a day for 4 more days and then 5 mg twice a day for at least 6 months, ascorbic acid 500 mg twice a day, ferrous gluconate 324 mg twice a day, atenolol 50 mg once a day, atorvastatin calcium 40 mg at bedtime, lisinopril 40 mg once a day, omeprazole 20 mg daily, and tiotropium bromide for Spiriva 1 inhalation once a day. FINAL DISCHARGE DIAGNOSES: 1. Acute hypoxic respiratory failure for which she continues to be on 2 liters of oxygen by nasal cannula. 2. Bilateral pulmonary emboli with left lower extremity deep vein thrombosis. 3. Anemia that is both iron and vitamin B12 deficiency for which she received B12 supplementation as well as IV Venofer. 4. Her upper and lower GI endoscopy were unremarkable and the academic affairs dean recommended full anticoagulation. 5. Probable chronic obstructive pulmonary disease for which she has been a heavy smoker for more than 40 years and continues to smoke up until recently. The patient was counseled about smoking. She will be discharged home with home health and she will have a repeat CT angio of the chest and bilateral lower extremity venous Doppler ultrasound in 6 weeks' time and a followup with the sports marketing internship as well as the oncologist. MARYAM CHA MD DR: SY/drake JOB#: [id number] / [id number]
--- NOTE | 2020-06-20 09:34 | PDOC ---
PULMONARY PROGRESS NOTES DATE: 06/20/20 TIME: 09:33 Subjective On 2 liters Denies SOA or Cough no overnight events Vitals Vital Signs Date Time Temp Pulse Resp B/P (MAP) Pulse Ox O2 Delivery O2 Flow Rate FiO2 06/20/20 08:35 94 113/50 06/20/20 07:00 97.9 19 94 Nasal Cannula 2.0 97.9 ROS: No Nausea, No Chest Pain, No Abdominal Pain, No Increase Cough General: Alert, Oriented X4 Lungs: Clear Cardiovascular: S1, S2 Abdomen: Soft, Non-tender Neuro Exam: Alert Extremities: No Edema Skin: Warm, Dry Labs Laboratory Tests Test 06/18/20 16:02 06/19/20 04:30 Hemoglobin 9.1 g/dL (12.0-15.5) 8.6 g/dL (12.0-15.5) Hematocrit 28.7 % (36.0-47.0) 26.6 % (36.0-47.0) White Blood Count 8.3 x10^3/uL (4.0-11.0) Red Blood Count 3.23 x10^6/uL (3.50-5.40) Mean Corpuscular Volume 83 fL (79-100) Mean Corpuscular Hemoglobin 27 pg (25-35) Mean Corpuscular Hemoglobin Concent 32 g/dL (31-37) Red Cell Distribution Width 19.2 % (11.5-14.5) Platelet Count 364 x10^3/uL (140-400) Sodium Level 141 mmol/L (136-145) Potassium Level 3.6 mmol/L (3.5-5.1) Chloride Level 106 mmol/L (98-107) Carbon Dioxide Level 27 mmol/L (21-32) Anion Gap 8 (6-14) Blood Urea Nitrogen 11 mg/dL (7-20) Creatinine 0.7 mg/dL (0.6-1.0) Estimated GFR (Cockcroft-Gault) 82.3 Glucose Level 103 mg/dL (70-99) Calcium Level 8.8 mg/dL (8.5-10.1) Medications Active Scripts Medications Dose Route/Sig Max Daily Dose Days Date Category Atorvastatin Calcium 40 Mg Tablet 1 Tab PO QHS 06/14/20 Reported Omeprazole 20 Mg Tablet.dr 20 Mg PO DAILY 06/14/20 Reported Atenolol 50 Mg Tablet 1 Tab PO DAILY 06/14/20 Reported Lisinopril 40 Mg Tablet 1 Tab PO DAILY 06/14/20 Reported Spiriva (Tiotropium Jackson) 18 Mcg Cap.w.dev 1 Cap IH DAILY 06/14/20 Reported Impression . IMPRESSION: 1. Acute hypoxic respiratory failure secondary to bilateral acute pulmonary embolism and deep venous thrombosis involving the left lower extremity. Risk factor being immobile around Thanksgiving time related to back injury. She was immobile for 6-8 weeks. There is no active cancer. The melanoma was resected from her scalp in 2003 and has no recurrence per the patient's history. The patient has 40 years of tobacco use and there is abnormal cystic like density in the left upper lobe and needs to be closely followed up for any lung malignancy. 2. Anemia without any obvious gastrointestinal source. 3. Long history of tobacco use for 40 years, suspect underlying chronic obstructive pulmonary disease. Plan . RECOMMENDATIONS: Continue Supplemental oxygen, currently on 2 liters N/C, 6 min walk before D/C Monitor HGB, S/P PRBC 1 unit 06/14/20 Cont. 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 Obtain venous Dopplers in 6-8 weeks to make sure there is resolution of thromboembolic disease. PT/OT D/W RN ok to D/C home from our standpoint, will follow up with us in office in 07/26/20 at 1030 LYNNE PATRICK MD Jun 20, 2020 09:34
--- NOTE | 2020-06-20 10:10 | PDOC ---
Date of Service: DATE: 06/20/20 TIME: 10:06 Subjective: Subjective: Feels fine, waiting to leave after 6 min walk. Objective: Vital Signs: Vital Signs Date Time Temp Pulse Resp B/P (MAP) Pulse Ox O2 Delivery O2 Flow Rate FiO2 06/20/20 08:35 94 113/50 06/20/20 08:00 Nasal Cannula 2.0 06/20/20 07:00 97.9 19 94 97.9 Imaging: EGD with biopsies/colonoscopy 06/17/20 Indication: EZIO E--Normal. GEJ at 30cm. G--Large HH from 30-40 cm. At least one Deniz lesion seen. Patchy mild antral erythema, biopsied. D--Normal to second portion; biopsies taken. NANCY--normal --'Scope advanced to cecum. Mucosa normal. Prep adequate. Diverticulosis sigmoid to transverse. No mass lesions, etc. IH's on retroflex. Wes. well. IMP: HH-associated erosions (Deniz lesions); can be a cause of EZIO. Gastric and duodenal biopsies taken re: H.pylori and Celiac respectively. Diverticulosis Internal hemorrhoids. REC: Await path. Would seem full anticoagulation would be safe. Note B12 deficient; have occasionally seen patients who present as EZIO and have B12 deficiency where treatment with B12 normalizes the iron studies and anemia. PO iron as well. PE: GEN: NAD - sitting up in bed LUNGS: clear, NC 2L HEART: RRR ABD: NABS, S/ND/NT NEURO/PSYCH: A & O 3 A/P: Bilateral PEs, LLE DVT - now on Eliquis EZIO, B12 deficient GERD Hiatal hernia w/ Deniz lesion, diverticulosis, internal hemorrhoids -- Dc per primary. Follow-up re: biopsy results. Continue iron, B12, and PPI. Justicifation of Admission Dx: Justifications for Admission: Justification of Admission Dx: Yes ESEQUIEL ISABEL Jun 20, 2020 10:10
[2020-06-20 11:00] VITALS: BP 108/40
--- NOTE | 2020-06-20 13:37 | NUR ---
SS following up with discharge planning. SS reviewed pt chart and discussed with pt RN. Pt is currently on room air. Six minute walk completed and pt not requiring oxygen. Discharge order for home healthcare received. Pt declining home healthcare at this time.
--- NOTE | 2020-06-20 14:24 | NUR ---
SS following up with discharge planning. Pt now agreeable to home healthcare with no preference of company. Referral and discharge orders phoned and faxed to [facility], ; fax [phone].
--- NOTE | 2020-06-20 15:23 | NUR ---
Discharge Note: KAI MOORE Discharge instructions and discharge home medications reviewed with Patient and a copy given. All questions have been answered and understanding verbalized. Follow up appointment information provided to patient. The following instructions and handouts were given: Eliquis, Ferrous Gluconate, Ascorbic Acid, Pulmonary Embolus, and Deep Vein Thrombus Discontinued lines and drains: Peripheral IV intact. Patient discharged to Home w/services with Family Member via Wheelchair
[2020-06-24] MEDS ORDERED: APIXABAN 5 MG TABLET. PO SCH (09:00)
== END 2020-06-20 15:25 | disposition home health service (06) | DRG 175 ==
LOC: 2 NORTH 21:22 → EDSEX 21:22 → 2 NORTH 06-19 16:13
PROVIDERS: ADMIT Internal Medicine; ATTEND Internal Medicine
PROC: 0DB98ZX Excision of Duodenum, Via Natural or Artificial Opening Endoscopic, Diagnostic (ICD-10-PCS; principal; 2020-06-13)
PROC: 0DB68ZX Excision of Stomach, Via Natural or Artificial Opening Endoscopic, Diagnostic (ICD-10-PCS; 2020-06-13)
PROC: 0DJD8ZZ Inspection of Lower Intestinal Tract, Via Natural or Artificial Opening Endoscopic (ICD-10-PCS; 2020-06-13)
PROC: 30233N1 Transfusion of Nonautologous Red Blood Cells into Peripheral Vein, Percutaneous Approach (ICD-10-PCS; 2020-06-14)
DX: I26.93 Single subsegmental thrombotic pulmonary embolism without acute cor pulmonale (principal); J96.01 Acute respiratory failure with hypoxia; I82.432 Acute embolism and thrombosis of left popliteal vein; J90 Pleural effusion, not elsewhere classified; M48.54XA Collapsed vertebra, not elsewhere classified, thoracic region, initial encounter for fracture; I82.4Z2 Acute embolism and thrombosis of unspecified deep veins of left distal lower extremity; I82.442 Acute embolism and thrombosis of left tibial vein; I26.99 Other pulmonary embolism without acute cor pulmonale; C43.9 Malignant melanoma of skin, unspecified; D50.9 Iron deficiency anemia, unspecified; E53.8 Deficiency of other specified B group vitamins; E78.5 Hyperlipidemia, unspecified; F17.210 Nicotine dependence, cigarettes, uncomplicated; I10 Essential (primary) hypertension; I25.10 Atherosclerotic heart disease of native coronary artery without angina pectoris; I70.0 Atherosclerosis of aorta; J44.9 Chronic obstructive pulmonary disease, unspecified; K21.9 Gastro-esophageal reflux disease without esophagitis; K44.9 Diaphragmatic hernia without obstruction or gangrene; K57.30 Diverticulosis of large intestine without perforation or abscess without bleeding; K64.8 Other hemorrhoids; Z20.822 Contact with and (suspected) exposure to COVID-19; Z80.6 Family history of leukemia; Z80.7 Family history of other malignant neoplasms of lymphoid, hematopoietic and related tissues; Z80.8 Family history of malignant neoplasm of other organs or systems; Z82.49 Family history of ischemic heart disease and other diseases of the circulatory system; Z85.820 Personal history of malignant melanoma of skin; Z98.41 Cataract extraction status, right eye; Z98.42 Cataract extraction status, left eye; Z74.01 Bed confinement status; Z71.6 Tobacco abuse counseling
CPT/HCPCS: 36415; 43239; 45378; 80048; 80053; 82274; 82607; 82668; 82728; 83010; 83516; 83520; 83540; 83550; 83615; 84165; 84436; 84443; 85007; 85014; 85018; 85025; 85027; 85045; 85520; 85610; 86850; 86900; 86901; 86920; 88305; 88342; 94618; 99406; J1644; J1756; J2704; J3420; J3490; J7050; J7120; P9016; 97116-GP; 97530-GP; 97535-GO; G0378; J7030

== ENCOUNTER → 2020-07-12 | Outpatient (CLI) | payer BC, MEDICARE ==
[2020-06-20 11:00] VITALS: BP 108/40
[~2020-07-12] MED LIST: APIX5TAB PO; ASCO500C PO; ATEN50TA PO; ATOR40TA59 PO; CONTRAST GIVEN. MC PRN; FERR324T2 PO; IOHEXOL 350 MG/ML 100 ML VIAL. IV ONE; LISI-130 PO; OMEP20TA8 PO; TIOT18CA IH
[2020-07-12 14:29] LABS: CREATININE 0.8 mg/dL (0.6-1.0); GFR 70.5
--- NOTE | 2020-07-12 16:19 | RAD ---
INDICATION: Reason: PE/PREVIOUS DVT / Spl. Instructions: / History: COMPARISON: June 13, 2020 TECHNIQUE: Grayscale, color and doppler ultrasound images were obtained of the bilateral lower extrem ity venous vasculature. RIGHT: No thrombus identified in the common femoral vein, femoral vein, popliteal vein or visualized calf ve ins. LEFT: No thrombus identified in the common femoral vein, femoral vein, popliteal vein or visualized calf ve ins. IMPRESSION: * No thrombus identified in deep venous system of bilateral lower extremities. Electronically signed by: Camilo Farrell MD (07/12/2020 4:17 PM) [id number]
--- NOTE | 2020-07-12 19:22 | RAD ---
EXAM: CT Pulmonary Angiogram INDICATION: Reason: PE DVT F/U / Spl. Instructions: IV OMNI 350 100 MLS / History: TECHNIQUE: Multi-detector row images were acquired from the thoracic inlet through the upper abdomen with the use of IV contrast. Sagittal and coronal images were acquired from the transaxial data. MA P images of the pulmonary arteries were obtained. All CT scans performed at this facility utilize dos e optimization techniques as appropriate to the exam, including the following: Automated exposure con trol and adjustment of the mA and/or KV according to patient size (this includes techniques or standa rdized protocols for targeted exams where dose is indication/reason for exam). IV CONTRAST: Administered COMPARISON: None FINDINGS: PULMONARY ARTERIES: A small filling defect in the lateral segment right middle lobe pulmonary artery (image 73 of series 3) is compatible with a small pulmonary embolus, morphology of which suggests a chronic, partially resolved thrombus. Otherwise no evidence of pulmonary emboli are identified. CARDIOVASCULAR: Borderline ectasia of the ascending thoracic aorta with caliber measuring 4.0 cm . T he heart is normal in size. Multivessel coronary calcifications are present. Right ventricular diamet er measures 4.3 cm. Left ventricular diameter measures 5.3 cm. No abnormal contour deformity to the i nterventricular septum. MEDIASTINUM & RAMON: Thyroid and trachea are unremarkable. Thoracic esophagus shows abnormal wall thic kening with a moderate sized hiatal hernia present. There is some soft tissue stranding around the di stal thoracic esophagus and hiatal hernia. LUNGS: Lungs show ill-defined irregular opacity at the right lung apex measuring 4.5 cm across by 1.9 cm anteroposterior and 2.1 cm craniocaudal as well as an ill-defined lacelike opacity with central l ucency at the left lung apex measuring 4.2 x 2.8 x 3.7 cm (AP by transverse by craniocaudal). At the periphery of this mixed opacity is more solid nodular component measuring 9 mm on image 45 with sligh t retraction to the pleura. Lungs also show mild centrilobular pattern emphysematous change. PLEURAL SPACE: No pleural effusions or pneumothorax. OSSEOUS & SOFT TISSUE: Chronic anterior wedge compression fracture at T12. No acute or aggressive oss eous lesions. ABDOMEN: The visualized portions of the upper abdomen show colonic diverticulosis and scattered arter ial calcifications.. IMPRESSION: 1. Small chronic thrombus in the lateral segment right middle pulmonary artery. No evidence of acute pulmonary emboli or of right heart strain. 2. Biapical pulmonary opacities in the setting of emphysema, nonspecific but potentially suspicious f or lung carcinoma in situ, especially on the left. Consider PET/CT or lung biopsy in further evaluati on. 3. Hiatal hernia with distal esophageal wall thickening and abnormal thickening of the gastric lumen in the hiatal hernia. Consider endoscopic correlation with clinically feasible. Electronically signed by: Tez Larson MD (07/12/2020 7:19 PM) [id number]
== END ==
LOC: CT 14:29
PROVIDERS: ATTEND Internal Medicine Critical Care Medicine
DX: J43.2 Centrilobular emphysema (principal); I77.810 Thoracic aortic ectasia; I26.99 Other pulmonary embolism without acute cor pulmonale; I82.409 Acute embolism and thrombosis of unspecified deep veins of unspecified lower extremity; I25.10 Atherosclerotic heart disease of native coronary artery without angina pectoris; K44.9 Diaphragmatic hernia without obstruction or gangrene; K57.30 Diverticulosis of large intestine without perforation or abscess without bleeding
CPT/HCPCS: 36415; 71275; 82565; 84520; 93970; Q9967

== ENCOUNTER → 2020-07-19 | Outpatient (CLI) | payer BC, MEDICARE ==
[2020-06-20 11:00] VITALS: BP 108/40
[~2020-07-19] MED LIST changes: -CONTRAST GIVEN. MC PRN; -IOHEXOL 350 MG/ML 100 ML VIAL. IV ONE
[2020-07-19 14:14] LABS: BASO # 0.1 x10^3/uL (0.0-0.2); BASO % 1 % (0-3); EOS # 0.1 x10^3/uL (0.0-0.7); EOS % 2 % (0-3); HEMATOCRIT 34.5 % (36.0-47.0); HEMOGLOBIN 11.3 g/dL (12.0-15.5); LYMPH # 3.4 x10^3/uL (1.0-4.8); LYMPH % 44 % (24-48); MEAN CORPUSCULAR HEMOGLOBIN 29 pg (25-35); MEAN CORPUSCULAR HGB CONC 33 g/dL (31-37); MEAN CORPUSCULAR VOLUME 88 fL (79-100); MONO # 0.6 x10^3/uL (0.0-1.1); MONO % 7 % (0-9); NEUT # 3.6 x10^3/uL (1.8-7.7); NEUT % 46 % (31-73); PLATELET COUNT 283 x10^3/uL (140-400); RED BLOOD COUNT 3.93 x10^6/uL (3.50-5.40); RED CELL DISTRIBUTION WIDTH 24.1 % (11.5-14.5); WHITE BLOOD COUNT 7.7 x10^3/uL (4.0-11.0)
[2020-07-19 14:29] LABS: CALCIUM 9.3 mg/dL (8.5-10.1); CREATININE 0.7 mg/dL (0.6-1.0); GFR 82.3
[2020-07-19 14:46] LABS: ANISOCYTOSIS MOD; PLT ESTIMATE ADEQUATE (ADEQUATE); POLYCHROMASIA SLIGHT
[2020-07-19 14:48] LABS: ALBUMIN 3.5 g/dL (3.4-5.0); ALBUMIN/GLOBULIN RATIO 1.1 (1.0-1.7); TOTAL BILIRUBIN 0.3 mg/dL (0.2-1.0); TOTAL PROTEIN 6.8 g/dL (6.4-8.2)
[2020-07-26 21:15] LABS: METHYLMALONIC ACID 119 nmol/L (0-378)
== END ==
LOC: ONCLAB 13:34
PROVIDERS: ATTEND Internal Medicine Hematology & Oncology
DX: D50.0 Iron deficiency anemia secondary to blood loss (chronic) (principal)
CPT/HCPCS: 36415; 80053; 82607; 82728; 82746; 83540; 83550; 83921; 85025

== ENCOUNTER → 2020-08-19 | Outpatient (CLI) | payer BC, MEDICARE ==
--- NOTE | 2020-08-19 13:48 | RAD ---
EXAM: Dual modality PET-CT Scan DATE: 08/19/2020 RADIOPHARMACEUTICAL: 15 mCi F-18 fluorodeoxyglucose (FDG) IV. CLINICAL HISTORY: Melanoma. Lung mass. COMPARISON: CT chest dated 07/12/2020. TECHNIQUE: Approximately 45 minutes after tracer administration, routine, attenuation-corrected Posit latonya Emission Tomography (PET) images of the entire body were obtained. Tomographic reconstructions ar e reviewed in coronal, transaxial and sagittal planes. Non-contrast CT imaging was performed for att enuation correction and localization purposes only. These images do not constitute a diagnostic-qual ity CT examination and were not used to diagnose disease independently of the PET images. The blood glucose level was 104 mg/dL at the time of FDG administration. *One or more of the following individualized dose reduction techniques were utilized for this examina tion: 1. Automated exposure control. 2. Adjustment of the mA and/or kV according to patient size. 3. Use of iterative reconstruction technique. FINDINGS: There is no abnormal radiotracer activity within the right scalp at the site of reported me lanoma. There is increased radiotracer activity within maximum SUV of 3.6 associated with and irregular mass or masslike consolidation within the posterior right lung apex measuring 4.0 cm. There is increased t racer tracer activity within maximum SUV of 2.9 along the peripheral aspect of a complicated cystic l esion with internal septations and thickened wall within the anterior left upper lobe measuring 4.7 c m. There is mild increased radiotracer activity within maximum SUV of 3.5 within the left submandibular location. No convincing corresponding lymph node is seen. The CT portion of the exam demonstrates a defect within the right frontal scalp corresponding with th e site of reported melanoma. There are soft tissue nodules throughout the scalp. No focus of increase d radiotracer activity is seen to suggest residual lucency in this location. No calvarial lesion is s een. There is no acute finding involving the brain. There is cerebral volume loss and there are cereb ral white matter changes which are likely due to chronic small vessel disease. There is evidence of l ens surgery. There are surgical clips within the right neck. There are small lymph nodes in this loca tion. There is physiologic activity within the bowel and renal collecting system. There is focal opacity within the right upper lobe measuring approximately 4.0 cm. There is surroundi ng groundglass opacity and apical emphysematous change. There is a complex cystic lesion with interna l septations and wall thickening within the anterior left upper lobe measuring approximately 4.7 cm i n maximum dimension. There is no infiltrate, pleural effusion or pneumothorax. The heart is mildly en larged. There is aortic and coronary artery atherosclerosis. No pathologically enlarged mediastinal o r hilar lymph node is seen. There is a large hiatal hernia with intrathoracic positioning of a large portion of the stomach. No hepatic lesion is seen. There is cholelithiasis. The pancreas, spleen and adrenal glands are unrem arkable. The kidneys are unremarkable. There is an infrarenal abdominal aortic aneurysm measuring 3.0 cm. There is no evidence of bowel obstruction. There is colonic diverticulosis. The uterus, bladder and adnexal regions are unremarkable. There are degenerative changes throughout the spine. There is n o acute or suspicious osseous lesion. IMPRESSION: 1. No abnormal tracer activity within the right scalp at the site of reported melanoma. There are pos toperative changes involving the right scalp. 2. Mild increased radiotracer activity within maximum SUV of 3.6 associated with a 4.0 cm mass or mas slike consolidation within the posterior right lung apex. This is nonspecific and may be inflammatory , infectious or neoplastic. 3. Mild increased radiotracer activity within maximum SUV of 2.9 associated with the peripheral aspec t of a complex thick-walled cystic lesion with internal septations measuring approximately 4.7 cm wit hin the left upper lobe. This is also nonspecific and may be inflammatory, infectious or neoplastic. 4. Mild increased radiotracer activity within maximum SUV of 3.5 within the left submandibular region . There are nonspecific nonenlarged lymph nodes in this location. This may be slight asymmetric physi ologic tracer activity or due to a reactive lymph node. Given a history of scalp melanoma and evidenc e of prior suspected right neck dissection, the possibility of a metastasis is not excluded. 5. Pulmonary emphysema. 6. Cholelithiasis. 7. Colonic diverticulosis. 8. Borderline abdominal aortic aneurysm measuring 3.0 cm. Electronically signed by: Janie Irvin MD (08/19/2020 1:46 PM) [id number]
== END ==
LOC: PETSC 08:22
PROVIDERS: ATTEND Internal Medicine Critical Care Medicine
DX: R91.8 Other nonspecific abnormal finding of lung field (principal); J43.9 Emphysema, unspecified; K57.30 Diverticulosis of large intestine without perforation or abscess without bleeding; K80.20 Calculus of gallbladder without cholecystitis without obstruction; I25.10 Atherosclerotic heart disease of native coronary artery without angina pectoris
CPT/HCPCS: 78816; A9552

== ENCOUNTER → 2020-09-16 | Outpatient (CLI) | payer BC, MEDICARE ==
[2020-09-16 11:13] LABS: BASO # 0.1 x10^3/uL (0.0-0.2); BASO % 1 % (0-3); EOS # 0.1 x10^3/uL (0.0-0.7); EOS % 2 % (0-3); HEMATOCRIT 26.2 % (36.0-47.0); HEMOGLOBIN 8.8 g/dL (12.0-15.5); LYMPH # 2.2 x10^3/uL (1.0-4.8); LYMPH % 31 % (24-48); MEAN CORPUSCULAR HEMOGLOBIN 32 pg (25-35); MEAN CORPUSCULAR HGB CONC 34 g/dL (31-37); MEAN CORPUSCULAR VOLUME 94 fL (79-100); MONO # 0.7 x10^3/uL (0.0-1.1); MONO % 10 % (0-9); NEUT % 57 % (31-73); PLATELET COUNT 324 x10^3/uL (140-400); RED BLOOD COUNT 2.79 x10^6/uL (3.50-5.40); RED CELL DISTRIBUTION WIDTH 13.9 % (11.5-14.5); WHITE BLOOD COUNT 7.1 x10^3/uL (4.0-11.0)
[2020-09-16 11:23] LABS: CREATININE 0.9 mg/dL (0.6-1.0); GFR 61.5; POTASSIUM 4.6 mmol/L (3.5-5.1)
[2020-09-16 11:55] LABS: ALBUMIN 3.4 g/dL (3.4-5.0); ALBUMIN/GLOBULIN RATIO 1.2 (1.0-1.7); TOTAL BILIRUBIN 0.3 mg/dL (0.2-1.0); TOTAL PROTEIN 6.2 g/dL (6.4-8.2)
[2020-09-24 11:10] LABS: METHYLMALONIC ACID 128 nmol/L (0-378)
== END ==
LOC: ONCLAB 10:42
PROVIDERS: ATTEND Internal Medicine Hematology & Oncology
DX: D64.9 Anemia, unspecified (principal)
CPT/HCPCS: 36415; 80053; 82607; 82728; 82746; 83540; 83550; 83921; 85025

== ENCOUNTER → 2020-09-22 | Outpatient (CLI) | payer BC, MEDICARE ==
[~2020-09-22] MED LIST changes: +CONTRAST GIVEN. MC PRN
[2020-09-22] MEDS: IOHEXOL 350 MG/ML 100 ML VIAL. IV ONE (08:45)
--- NOTE | 2020-09-22 12:02 | RAD ---
Study: CT CHEST WITH CONTRAST - PULMONARY ANGIOGRAM History: Pulmonary embolism Comparison: CTA chest 07/12/2020 Technique: Helical CT of the chest performed after the administration of 100 mL Omnipaque 350 intrav enous contrast and timed for angiographic evaluation of the pulmonary arteries per PE protocol. Coron al and sagittal 3D MIP reformations were obtained. One or more of the following individualized dose reduction techniques were utilized for this examinat ion: 1. Automated exposure control 2. Adjustment of the mA and/or kV according to patient size 3. Use of iterative reconstruction technique. Findings: Pulmonary Arteries: Contrast bolus is adequate. There is no acute pulmonary embolism. Heart/Systemic Vasculature: Heart is normal in size. No pericardial effusion. There are coronary ivette ry calcifications. Thoracic aorta is normal in caliber Mediastinum: No lymphadenopathy. Moderate hiatal hernia Lungs: The multicystic lesion in the anterior left apex with a thick thick wall is now overall 5.2 x 2.4 cm, previously 4.8 x 1.8 cm. the soft tissue component has increased anteriorly, now 2.8 x 1.7 cm , previously 2.3 x 1.4 cm. The multi cystic component may be slightly smaller. An nodular component a t the superior lateral aspect of the lesion measures 1.4 x 1.0 cm, previously 1.4 x 0.8 cm. A nodular component along the inferior lateral aspect of the lesion measures 1.0 x 0.8 cm, unchanged. A massli ke consolidation in the right apex measures approximately 3.8 x 1.5 cm, previously 3.7 x 1.6 cm. Ther e is mild centrilobular emphysema. No pleural effusion. The airways are clear. Neck/Axilla/Body Wall: No axillary lymphadenopathy. Breast tissue symmetric. Upper Abdomen: Cholelithiasis. Bones: A T12 compression fracture with 50 percent vertebral body height loss anteriorly and mild resu ltant kyphosis at T11-T12 is unchanged. There is no retropulsion of cortex. Mild thoracic degenerativ e disc disease. IMPRESSION: 1. No acute pulmonary embolism. 2. The thick-walled cystic lesion in the left apex is overall slightly larger. The soft tissue compo nent anteriorly has increased. Cystic component may be slightly smaller. Masslike consolidation in th e right apex is unchanged. Recommend continued surveillance with CT and/or PET/CT. 3. Unchanged mild emphysema. 4. Unchanged T12 compression fracture with 50 percent vertebral body height loss. 5. Cholelithiasis. Electronically signed by: Yumiko Villeda MD (09/22/2020 12:00 PM) [id number]
== END ==
LOC: CT 09:03
PROVIDERS: ATTEND Internal Medicine Critical Care Medicine
DX: J43.2 Centrilobular emphysema (principal); K44.9 Diaphragmatic hernia without obstruction or gangrene; M48.54XA Collapsed vertebra, not elsewhere classified, thoracic region, initial encounter for fracture; K80.20 Calculus of gallbladder without cholecystitis without obstruction
CPT/HCPCS: 71275; Q9967

== ENCOUNTER 2020-09-30 08:13 | Outpatient (CLI) | payer BC, MEDICARE ==
[2020-09-30] VITALS (12 sets, daily range): BP systolic 100–134; BP diastolic 58–84
[~2020-09-30] VITALS: Ht 160 cm; Wt 80.7 kg
[~2020-09-30 08:13] MED LIST changes: -CONTRAST GIVEN. MC PRN
[2020-09-30 09:00] LABS: BASO % 0 % (0-3); EOS # 0.1 x10^3/uL (0.0-0.7); EOS % 2 % (0-3); HEMATOCRIT 29.1 % (36.0-47.0); HEMOGLOBIN 9.4 g/dL (12.0-15.5); LYMPH # 2.7 x10^3/uL (1.0-4.8); LYMPH % 44 % (24-48); MEAN CORPUSCULAR HEMOGLOBIN 30 pg (25-35); MEAN CORPUSCULAR HGB CONC 32 g/dL (31-37); MEAN CORPUSCULAR VOLUME 91 fL (79-100); MONO # 0.6 x10^3/uL (0.0-1.1); MONO % 11 % (0-9); NEUT # 2.6 x10^3/uL (1.8-7.7); NEUT % 43 % (31-73); PLATELET COUNT 365 x10^3/uL (140-400); RED BLOOD COUNT 3.19 x10^6/uL (3.50-5.40); RED CELL DISTRIBUTION WIDTH 13.6 % (11.5-14.5); WHITE BLOOD COUNT 6.1 x10^3/uL (4.0-11.0)
[2020-09-30 09:08] LABS: CALCIUM 8.9 mg/dL (8.5-10.1); CREATININE 0.7 mg/dL (0.6-1.0); GFR 82.3; POTASSIUM 4.7 mmol/L (3.5-5.1)
[2020-09-30] MEDS ORDERED: LIDOCAINE WITH 8.4% SOD BICARB 3 ML DISP.SYRIN. ONE (09:52)
[2020-09-30] MEDS ORDERED: fentaNYL PF VIAL 100 MCG/2 ML VIAL ONE (10:06)
[2020-09-30] MEDS ORDERED: MIDAZOLAM HCL/PF 2 MG/2 ML VIAL. ONE (10:06)
[2020-09-30] MEDS ORDERED: MIDAZOLAM HCL/PF 2 MG/2 ML VIAL. IV ONE (10:30)
[2020-09-30] MEDS ORDERED: fentaNYL PF VIAL 100 MCG/2 ML VIAL IV ONE (10:30)
[2020-09-30] MEDS ORDERED: LIDOCAINE WITH 8.4% SOD BICARB 3 ML DISP.SYRIN. IJ ONE (10:30)
--- NOTE | 2020-09-30 12:30 | NUR ---
Per MD, CXR stable. Okay to d/c. Patient's daughter driving home.
--- NOTE | 2020-09-30 12:39 | NUR ---
Discharge instructions reviewed with patient. CHRIS [email or web address]'jazz. Pt discharged to home with family.
--- NOTE | 2020-09-30 12:41 | RAD ---
EXAM: Chest, 2 views. HISTORY: Lung biopsy. COMPARISON: CT dated 09/22/2020. FINDINGS: A frontal view of the chest is obtained. There is no evidence of a pneumothorax status post left lung biopsy. There is a thick-walled cystic lesion within the left upper lobe better characteri zed on the prior CT. There is adjacent opacity likely due to postbiopsy changes. There is also right apical opacity likely due to scarring. There is a large hiatal hernia. The heart is normal in size. T here is no pleural effusion. IMPRESSION: 1. No evidence of pneumothorax status post left lung biopsy. 2. Thick-walled cystic lesion within the left upper lobe with adjacent postoperative changes, better characterized on the prior CT. There is also suspected scarring within the right lung apex. 3. Large hiatal hernia. Electronically signed by: Janie Irvin MD (09/30/2020 12:38 PM) [id number]
--- NOTE | 2020-09-30 15:11 | RAD ---
CT-guided biopsy, left upper lobe cavitary lesion 09/30/2020 Clinical Indication: Cavitary lesion with thick walled component, PET avid Discussion: The procedure was explained in its entirety to the patient or the patients designated herbicide service sales representative by a member of the treatment team, including a discussion of the risks, benefits and commonly accepted alternatives to the procedure, as well as the expected consequences of no therapy whatsoever. Discussion of the risks included, but was not limited to, those that are most frequent and those that are rare but possibly severe or life-threatening, as well as the possibility of unforeseen complications. All elements of maximal sterile barrier technique including the use of a cap, mask, sterile gown, sterile gloves, large sterile sheet, appropriate hand hygiene, and 2% chlorhexidine for cutaneous antisepsis (or acceptable alternative antiseptic per current guidelines) were followed for this procedure. Informed consent was obtained. A timeout procedure was performed. CT imaging redemonstrates a thick-walled cavitary lesion in the apical left upper lobe. An anterior approach was used. 1% lidocaine was administered for local anesthesia. Under intermittent CT guidance a 17-gauge needle was advanced into the solid component of the lesion. Core biopsy samples were obtained. A pleural plaque device was deployed as the guiding needle was removed. Manual pressure was held. Repeat CT demonstrates minimal perilesional hemorrhage without pneumothorax. Sterile dressings were applied. No immediate complications were identified. The procedures performed under conscious sedation including continuous cardiopulmonary monitoring via dedicated sedation nurse. [id number] sedation time: 25 minutes Impression: CT-guided biopsy, right upper lobe thick-walled cavitary lesion PQRS Compliance Statement: One or more of the following individualized dose reduction techniques were utilized for this examination: 1. Automated exposure control 2. Adjustment of the mA and/or kV according to patient size 3. Use of iterative reconstruction technique
== END 2020-09-30 12:40 | disposition home or self-care (01) ==
LOC: INTRAD 08:13
PROVIDERS: ATTEND Internal Medicine Critical Care Medicine
DX: R91.8 Other nonspecific abnormal finding of lung field (principal); K44.9 Diaphragmatic hernia without obstruction or gangrene; I10 Essential (primary) hypertension; E78.00 Pure hypercholesterolemia, unspecified; Z85.828 Personal history of other malignant neoplasm of skin; Z79.899 Other long term (current) drug therapy; Z98.890 Other specified postprocedural states; Z87.891 Personal history of nicotine dependence; Z72.89 Other problems related to lifestyle; Z82.49 Family history of ischemic heart disease and other diseases of the circulatory system
CPT/HCPCS: 32408; 36415; 71045; 80048; 85025; 85610; 87426; 99152; 99153; J2250; J3010; J3490

== ENCOUNTER → 2020-12-16 | Outpatient (CLI) | payer BC ==
[2020-09-30 12:13] VITALS: BP 105/73
[2020-12-16 11:15] LABS: BASO # 0.1 x10^3/uL (0.0-0.2); BASO % 1 % (0-3); EOS # 0.2 x10^3/uL (0.0-0.7); EOS % 3 % (0-3); HEMATOCRIT 27.6 % (36.0-47.0); HEMOGLOBIN 8.7 g/dL (12.0-15.5); LYMPH # 1.3 x10^3/uL (1.0-4.8); LYMPH % 20 % (24-48); MEAN CORPUSCULAR HEMOGLOBIN 25 pg (25-35); MEAN CORPUSCULAR HGB CONC 32 g/dL (31-37); MEAN CORPUSCULAR VOLUME 79 fL (79-100); MONO # 0.9 x10^3/uL (0.0-1.1); MONO % 14 % (0-9); NEUT # 4.1 x10^3/uL (1.8-7.7); NEUT % 62 % (31-73); PLATELET COUNT 362 x10^3/uL (140-400); RED BLOOD COUNT 3.51 x10^6/uL (3.50-5.40); RED CELL DISTRIBUTION WIDTH 17.2 % (11.5-14.5); WHITE BLOOD COUNT 6.5 x10^3/uL (4.0-11.0)
[2020-12-16 11:30] LABS: CALCIUM 9.5 mg/dL (8.5-10.1); CREATININE 0.9 mg/dL (0.6-1.0); GFR 61.5; POTASSIUM 4.8 mmol/L (3.5-5.1)
[2020-12-16 11:48] LABS: ALBUMIN 3.6 g/dL (3.4-5.0); ALBUMIN/GLOBULIN RATIO 0.9 (1.0-1.7); TOTAL BILIRUBIN 0.4 mg/dL (0.2-1.0); TOTAL PROTEIN 7.4 g/dL (6.4-8.2)
== END ==
LOC: ONCLAB 10:51
PROVIDERS: ATTEND Internal Medicine Hematology & Oncology
DX: D64.9 Anemia, unspecified (principal)
CPT/HCPCS: 36415; 80053; 82728; 83540; 83550; 85025

== ENCOUNTER → 2020-12-23 | Outpatient (CLI) | payer BC ==
[2020-09-30 12:13] VITALS: BP 105/73
[2020-12-23 15:36] LABS: FECAL OB PT NEGATIVE (NEG)
[2020-12-23 15:39] LABS: FECAL OB PT NEGATIVE (NEG)
[2020-12-23 15:39] LABS: FECAL OB PT NEGATIVE (NEG)
== END ==
LOC: ONCLAB 14:25
PROVIDERS: ATTEND Physician Assistant
DX: C34.12 Malignant neoplasm of upper lobe, left bronchus or lung (principal)
CPT/HCPCS: 82274

== ENCOUNTER → 2021-01-24 | Outpatient (CLI) | payer BC ==
[2020-09-30 12:13] VITALS: BP 105/73
[2021-01-24 12:18] LABS: BASO # 0.1 x10^3/uL (0.0-0.2); BASO % 1 % (0-3); EOS # 0.1 x10^3/uL (0.0-0.7); EOS % 1 % (0-3); HEMATOCRIT 33.8 % (36.0-47.0); HEMOGLOBIN 11.1 g/dL (12.0-15.5); LYMPH % 34 % (24-48); MEAN CORPUSCULAR HEMOGLOBIN 28 pg (25-35); MEAN CORPUSCULAR HGB CONC 33 g/dL (31-37); MEAN CORPUSCULAR VOLUME 84 fL (79-100); MONO # 0.7 x10^3/uL (0.0-1.1); MONO % 12 % (0-9); NEUT # 3.1 x10^3/uL (1.8-7.7); NEUT % 52 % (31-73); PLATELET COUNT 271 x10^3/uL (140-400); RED BLOOD COUNT 4.03 x10^6/uL (3.50-5.40); RED CELL DISTRIBUTION WIDTH 27.5 % (11.5-14.5)
[2021-01-24 13:14] LABS: ANISOCYTOSIS SLIGHT; PLT ESTIMATE ADEQUATE (ADEQUATE)
== END ==
LOC: ONCLAB 11:30
PROVIDERS: ATTEND Internal Medicine Hematology & Oncology
DX: D50.0 Iron deficiency anemia secondary to blood loss (chronic) (principal)
CPT/HCPCS: 36415; 82728; 83540; 83550; 85025

== ENCOUNTER → 2021-03-06 | Outpatient (CLI) | payer BC ==
[2020-09-30 12:13] VITALS: BP 105/73
[2021-03-06 11:08] LABS: BASO % 1 % (0-3); EOS # 0.1 x10^3/uL (0.0-0.7); EOS % 2 % (0-3); HEMATOCRIT 36.4 % (36.0-47.0); LYMPH # 1.7 x10^3/uL (1.0-4.8); LYMPH % 33 % (24-48); MEAN CORPUSCULAR HEMOGLOBIN 30 pg (25-35); MEAN CORPUSCULAR HGB CONC 33 g/dL (31-37); MEAN CORPUSCULAR VOLUME 91 fL (79-100); MONO # 0.5 x10^3/uL (0.0-1.1); MONO % 9 % (0-9); NEUT # 2.9 x10^3/uL (1.8-7.7); NEUT % 55 % (31-73); PLATELET COUNT 282 x10^3/uL (140-400); RED BLOOD COUNT 4.01 x10^6/uL (3.50-5.40); RED CELL DISTRIBUTION WIDTH 24.9 % (11.5-14.5); WHITE BLOOD COUNT 5.3 x10^3/uL (4.0-11.0)
[2021-03-06 12:32] LABS: ANISOCYTOSIS SLIGHT; PLT ESTIMATE ADEQUATE (ADEQUATE)
== END ==
LOC: ONCLAB 10:26
PROVIDERS: ATTEND Internal Medicine Hematology & Oncology
DX: C34.12 Malignant neoplasm of upper lobe, left bronchus or lung (principal); D50.0 Iron deficiency anemia secondary to blood loss (chronic)
CPT/HCPCS: 82607; 82728; 82746; 83540; 83550; 83921; 85025

== ENCOUNTER → 2021-03-24 | Outpatient (CLI) | payer BC ==
[2020-09-30 12:13] VITALS: BP 105/73
--- NOTE | 2021-03-24 12:56 | RAD ---
EXAM: PET/CT SKULL BASE THROUGH MID THIGH. HISTORY: Lung adenocarcinoma. TECHNIQUE: CT of the skull base through the mid thighs was performed for the purposes of attenuation correction. 10.4 mCi F-18 fluorodeoxyglucose were administered intravenously. Blood glucose level at the time of administration was 96 mg/dL. After an uptake period, positron emission tomography of the skull base through the mid thighs was performed. The PET and CT data were fused and interpreted in co mbination on a dedicated workstation. COMPARISON: 09/22/2020. FINDINGS: Hypermetabolism with maximum SUVs 5.9 is noted within the deep lobe of the left parotid gla nd versus the lateral aspect of the left carotid space. A discrete nodule is not appreciated at this site. There are no hypermetabolic cervical lymph nodes. A nodule in the right lung apex is hypermetabolic with maximum SUV 6.3. By CT, this is a scarlike reg ion, the solid portion of which measures 2.1 x 1.4 cm. Multifocal hypermetabolism in the left upper l obe corresponds with a multiple scarlike densities on CT. Maximum SUV is 3.5. Some of these scarlike regions along the left upper lobe pleura have increased slightly since 09/22/2020. There are no hyper metabolic mediastinal lymph nodes. Uptake along the thoracic paraspinous muscles secondary to activity during during uptake. Uptake at t he right shoulder is secondary to glenohumeral inflammation. Uptake at the base of the tongue is also likely from muscular activity. There is no hypermetabolism suggestive of metastatic disease. Additional CT findings include, changes of bilateral cataract surgery. A large hiatal hernia contains the majority of the stomach. A gallstone is noted. Infrarenal abdominal aortic ectasia densities max imum diameter 2.9 cm. There is no aneurysmal dilatation. Sigmoid diverticulosis is moderate. There ar e atherosclerotic calcifications of the coronary arteries. There are moderate compression deformities at the thoracolumbar junction. IMPRESSION: 1. A hypermetabolic nodule within the right upper lobe demonstrates maximum SUV 6.3 and is concerning for bronchogenic carcinoma. No evidence of loree or distant metastatic disease. 2. Multifocal scarlike densities within the left upper lobe demonstrate mild to moderate hypermetabol ism and an inflammatory process is favored. Ongoing follow-up is recommended. 3. Hypermetabolism either within the deep lobe of the left parotid gland or the lateral aspect of the left carotid space is indeterminate. CT of the neck soft tissues with contrast is recommended to fur ther evaluate this site. 4. Additional CT findings as above. Electronically signed by: Dylan Ba MD (03/24/2021 12:54 PM) [id number]
== END ==
LOC: PETSC 08:32
PROVIDERS: ATTEND Radiology Radiation Oncology
DX: C34.12 Malignant neoplasm of upper lobe, left bronchus or lung (principal); R91.1 Solitary pulmonary nodule; K44.9 Diaphragmatic hernia without obstruction or gangrene; K80.20 Calculus of gallbladder without cholecystitis without obstruction; I77.811 Abdominal aortic ectasia; K57.30 Diverticulosis of large intestine without perforation or abscess without bleeding; I25.10 Atherosclerotic heart disease of native coronary artery without angina pectoris
CPT/HCPCS: 78815; A9552

== ENCOUNTER → 2021-06-14 | Outpatient (CLI) | payer BC ==
[2020-09-30 12:13] VITALS: BP 105/73
[2021-06-14 11:23] LABS: BASO % 1 % (0-3); EOS # 0.1 x10^3/uL (0.0-0.7); EOS % 2 % (0-3); HEMATOCRIT 35.8 % (36.0-47.0); HEMOGLOBIN 11.9 g/dL (12.0-15.5); LYMPH # 1.6 x10^3/uL (1.0-4.8); LYMPH % 27 % (24-48); MEAN CORPUSCULAR HEMOGLOBIN 32 pg (25-35); MEAN CORPUSCULAR HGB CONC 33 g/dL (31-37); MEAN CORPUSCULAR VOLUME 97 fL (79-100); MONO # 0.6 x10^3/uL (0.0-1.1); MONO % 9 % (0-9); NEUT # 3.6 x10^3/uL (1.8-7.7); NEUT % 62 % (31-73); PLATELET COUNT 293 x10^3/uL (140-400); RED CELL DISTRIBUTION WIDTH 14.1 % (11.5-14.5); WHITE BLOOD COUNT 5.9 x10^3/uL (4.0-11.0)
== END ==
LOC: ONCLAB 10:40
PROVIDERS: ATTEND Internal Medicine Hematology & Oncology
DX: D50.0 Iron deficiency anemia secondary to blood loss (chronic) (principal); D64.9 Anemia, unspecified
CPT/HCPCS: 36415; 82728; 83540; 83550; 85025

== ENCOUNTER → 2021-08-18 | Outpatient (CLI) | payer BC ==
[2020-09-30 12:13] VITALS: BP 105/73
--- NOTE | 2021-08-18 14:50 | RAD ---
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 Restaging. Comparison: FDG PET/CT, skull base to upper thighs March 24, 2021. Technique: Patient blood glucose at the time of injection is 100 mg/dL. The patient was administered 11.9 mCi of F-18 FDG intravenously. The patient rested quietly during a 45 minute uptake period. Then PET imaging from the skull base to the upper thighs was performed. A noncontrast CT was acquired ove r this same area. The CT is for attenuation correction and anatomic localization, it is not of diagno stic quality and is not intended to diagnose disease independently of the PET. Reported standard upta ke values (SUV) are the maximum SUV within a lesional volumetric region of interest. SUV normalizatio n is via body mass. PQRS Compliance Statement: One or more of the following individualized dose reduction techniques were utilized for this examinat ion: 1. Automated exposure control 2. Adjustment of the mA and/or kV according to patient size 3. Use of iterative reconstruction technique Findings: Mediastinal blood pool SUV reference value: Max 2.5, mean 2.2. Head and neck: FDG uptake of the deep left parotid has decreased from prior study, SUVmax 3.6. No focal abnormality is seen on CT. Chest: The scarlike opacity in the right lung apex is unchanged in size. The focal FDG uptake laterally has resolved. The opacity demonstrates FDG uptake that is less than blood pool. Scarring with intrinsic bronchiectasis in the left upper lobe with surrounding groundglass opacities and low level FDG uptake is unchanged. Large hiatal hernia. Ectatic thoracic aorta. Abdomen and pelvis: There is no evidence of FDG-avid disease. Cholelithiasis. Sigmoid colon diverticulosis. Musculoskeletal: There is no evidence of FDG avid bone metastasis. Compression deformities of the lower thoracic spine are stable. Relatively symmetric FDG uptake of muscles of the medial thighs, paraspinal, and bilateral upper extr emities are probably due to recent physical activity. IMPRESSION: 1. Scarlike opacity in the right lung apex demonstrates FDG uptake that is less than blood pool. The previously seen focal moderate FDG uptake laterally has resolved compatible with response to therapy . 2. Scarring with intrinsic bronchiectasis and surrounding groundglass opacities with low level FDG u ptake in the left upper lobe is unchanged, likely sequela of radiation. 3. FDG uptake of the deep left parotid gland has decreased. Electronically signed by: Contreras Mireles MD (08/18/2021 2:47 PM) [id number]
== END ==
LOC: PETSC 10:23
PROVIDERS: ATTEND Radiology Radiation Oncology
DX: C34.11 Malignant neoplasm of upper lobe, right bronchus or lung (principal); J47.9 Bronchiectasis, uncomplicated; J98.4 Other disorders of lung; I77.810 Thoracic aortic ectasia; K44.9 Diaphragmatic hernia without obstruction or gangrene; K57.30 Diverticulosis of large intestine without perforation or abscess without bleeding; K80.20 Calculus of gallbladder without cholecystitis without obstruction; M43.8X4 Other specified deforming dorsopathies, thoracic region
CPT/HCPCS: 78815; A9552

== ENCOUNTER → 2021-09-26 | Outpatient (CLI) | payer BC ==
[2020-09-30 12:13] VITALS: BP 105/73
[~2021-09-26] MED LIST changes: -OMEP20TA8 PO; +OMEP20TA91 PO
[2021-09-26 11:40] LABS: BASO % 1 % (0-3); EOS # 0.1 x10^3/uL (0.0-0.7); EOS % 2 % (0-3); HEMATOCRIT 30.1 % (36.0-47.0); HEMOGLOBIN 9.4 g/dL (12.0-15.5); LYMPH % 35 % (24-48); MEAN CORPUSCULAR HEMOGLOBIN 27 pg (25-35); MEAN CORPUSCULAR HGB CONC 31 g/dL (31-37); MEAN CORPUSCULAR VOLUME 86 fL (79-100); MONO # 0.6 x10^3/uL (0.0-1.1); MONO % 11 % (0-9); NEUT # 2.9 x10^3/uL (1.8-7.7); NEUT % 52 % (31-73); PLATELET COUNT 374 x10^3/uL (140-400); RED BLOOD COUNT 3.51 x10^6/uL (3.50-5.40); RED CELL DISTRIBUTION WIDTH 15.6 % (11.5-14.5); WHITE BLOOD COUNT 5.7 x10^3/uL (4.0-11.0)
== END ==
LOC: ONCLAB 11:19
PROVIDERS: ATTEND Internal Medicine Hematology & Oncology
DX: C34.11 Malignant neoplasm of upper lobe, right bronchus or lung (principal); D50.0 Iron deficiency anemia secondary to blood loss (chronic)
CPT/HCPCS: 36415; 82728; 83540; 83550; 85025

== ENCOUNTER → 2021-10-10 | Outpatient (CLI) | payer BC ==
[2020-09-30 12:13] VITALS: BP 105/73
[2021-10-10 11:01] LABS: BASO # 0.1 x10^3/uL (0.0-0.2); BASO % 1 % (0-3); EOS # 0.1 x10^3/uL (0.0-0.7); EOS % 2 % (0-3); HEMATOCRIT 31.8 % (36.0-47.0); HEMOGLOBIN 10.1 g/dL (12.0-15.5); LYMPH # 1.6 x10^3/uL (1.0-4.8); LYMPH % 25 % (24-48); MEAN CORPUSCULAR HEMOGLOBIN 27 pg (25-35); MEAN CORPUSCULAR HGB CONC 32 g/dL (31-37); MEAN CORPUSCULAR VOLUME 87 fL (79-100); MONO # 0.6 x10^3/uL (0.0-1.1); MONO % 10 % (0-9); NEUT # 4.1 x10^3/uL (1.8-7.7); NEUT % 63 % (31-73); PLATELET COUNT 326 x10^3/uL (140-400); RED BLOOD COUNT 3.67 x10^6/uL (3.50-5.40); RED CELL DISTRIBUTION WIDTH 18.2 % (11.5-14.5); WHITE BLOOD COUNT 6.4 x10^3/uL (4.0-11.0)
[2021-10-10 11:16] LABS: CREATININE 0.8 mg/dL (0.6-1.0); GFR 70.3
[2021-10-10 11:33] LABS: ALBUMIN 3.5 g/dL (3.4-5.0); ALBUMIN/GLOBULIN RATIO 0.9 (1.0-1.7); TOTAL BILIRUBIN 0.6 mg/dL (0.2-1.0); TOTAL PROTEIN 7.5 g/dL (6.4-8.2)
== END ==
LOC: ONCLAB 10:42
PROVIDERS: ATTEND Internal Medicine Hematology & Oncology
DX: C34.11 Malignant neoplasm of upper lobe, right bronchus or lung (principal); D50.0 Iron deficiency anemia secondary to blood loss (chronic)
CPT/HCPCS: 36415; 80053; 82728; 83540; 83550; 85025